=== PATIENT | female | born 1945 | race Caucasian/White ===

== ENCOUNTER 2016-09-27 11:41 | Day surgery (SDC) | payer MEDICARE, OTHER ==
[2016-09-27] VITALS (8 sets, daily range): BP systolic 103–191; BP diastolic 53–102; PULSE 58–79; RESP 12–18; TEMP 96.7–97.7; O2SAT 95–100; Ht 170.2 cm; Wt 89.2 kg
[~2016-09-27] VITALS: Ht 170.2 cm; Wt 89.2 kg
[~2016-09-27 11:41] MED LIST: ALBU2.5V2 AEROSOL; ALLO300T2 PO; AMLO5TAB2 PO; ASPI81TA2 PO; CYAN250010 PO; DOCU-168 PO; ERTAPENEM 1 G in NORMAL SALINE 100 ML IV ONE; FISH1CAP2 PO; LEVO100T12 PO; LEVO5TAB20 PO; LIDOCAINE 1% (10mg/ml) 2ml SDV INJ ONE; LOSA50TA2 PO; OMEP10SU2 PO; VIT1CAPS47 PO; [UNRECOGNIZED DRUG - CODE] PO
--- OUTSIDE RECORDS SUMMARY | 2016-09-27 11:45 | XMS REPORT | Referral Summary ---
Author Author [facility], Family Medicine Organization [facility] Address Unknown Phone Unavailable Care Team Providers Care Shock Absorption Floor Layer Name Role Phone Ailyn Stephenson Primary Care Physician [phone] Encounter VC Date(s): 07/13/16 - 07/13/16 [facility], [address] [place] [address]- Discharge Diagnosis: Asthma exacerbation Discharge Disposition: 01-Home or Self Care Attending Physician: Luc Stephenson MD Admitting Physician: Luc Stephenson MD Vital Signs Most recent to 1 oldest [Reference Range]: Peripheral Pulse 95 bpm Rate [60-100 bpm] (07/13/16 2:05 PM) Blood Pressure 134/78 mmHg [90-140/60-90 mmHg] (07/13/16 2:05 PM) SpO2 97 % (07/13/16 2:05 PM) Problem List Condition Effective Dates Status Health Status Informant Acquired Active hypothyroidism(Confi rmed) Depression(Confirmed Active ) Anxiety(Confirmed) Active Meningioma of 2010 Active brain(Confirmed) Meningioma of 2000 Active brain(Confirmed)1 Bronchitis(Confirmed Active ) Constipation(Confirm Active ed) COPD(Confirmed) Resolved Liver Active disease(Confirmed) Diverticulitis(Confi Active rmed) Fibrocystic breast Active disease(Confirmed) Fractured shoulder Resolved Left(Confirmed) GERD Active (gastroesophageal reflux disease)(Confirmed) Hyperlipidemia(Confi Active rmed) Hypertension(Confirm Active ed) Hyperthyroidism(Conf Active irmed) Lymphadenopathy(Conf Active irmed) Thyroid 1980 Active cancer(Confirmed) Pneumonia(Confirmed) Active Allergies, Adverse Reactions, Alerts Substance Reaction Severity Status Augmentin Active levofloxacin Active penicillins Diarrhea Active Vomiting dehyrdation [id number] Active statins muscle cramps Active 1generalized swelling. Medications albuterol 2.5 mg/3 mL (0.083%) inhalation solution 2.5 mg 3 mL, Inhalation, q6hr, as needed for wheezing, # 2 boxes, 2 Refill(s), Pharmacy: [facility] #[id number], 3 mL Inhalation q6hr,PRN:as needed for wheezing Start Date: 02/23/16 Status: Ordered Aspir 81 81 mg, Oral, Daily, 0 Refill(s) Start Date: 12/17/13 Status: Ordered Colace Oral, Daily, 0 Refill(s) Start Date: 11/15/14 Status: Ordered doxycycline hyclate 100 mg oral capsule 100 mg 1 caps, Oral, BID, # 20 caps, 0 Refill(s), Pharmacy: [facility] # [id number], 1 caps Oral BID Start Date: 07/13/16 Stop Date: 07/23/16 Status: Ordered DuoNeb 0.5 mg-2.5 mg/3 mL inhalation solution 3 mL, NEB, QID, # 60 Each, 2 Refill(s), Pharmacy: [facility] #[id number] Start Date: 07/13/16 Status: Ordered fexofenadine 180 mg oral tablet 180 mg 1 tabs, Oral, Daily, # 30 tabs, 0 Refill(s) Start Date: 06/30/16 Status: Ordered Fish Oil See Instructions, 1 capsule Oral daily., 0 Refill(s) Start Date: 04/11/15 Status: Ordered levothyroxine 100 mcg (0.1 mg) oral tablet See Instructions, TAKE ONE TABLET BY MOUTH DAILY, # 90 tabs, 1 Refill(s), Pharmacy: [facility], TAKE ONE TABLET BY MOUTH DAILY Start Date: 04/21/16 Status: Ordered lisinopril 10 mg oral tablet See Instructions, TAKE ONE TABLET BY MOUTH EVERY DAY, # 90 tabs, 1 Refill(s), Pharmacy: [facility], TAKE ONE TABLET BY MOUTH EVERY DAY Start Date: 05/20/16 Status: Ordered PreserVision AREDS 2 caps, Oral, Daily, 0 Refill(s) Start Date: 12/31/15 Status: Ordered PriLOSEC 10 mg oral delayed release capsule 1 caps, Oral, Daily, # 30 caps, 0 Refill(s) Start Date: 01/03/14 Status: Ordered promethazine-codeine 6.25 mg-10 mg/5 mL oral syrup 5 mL, Oral, q4hr, as needed for cough, not to exceed 30 mL/24 hours N. Dillons , # 240 mL, 0 Refill(s) Start Date: 06/30/16 Status: Ordered Systane 1 drops, Eye-Both, BID, 0 Refill(s) Start Date: 04/11/15 Status: Ordered Tussionex PennKinetic 10 mg-8 mg/5 mL oral suspension, extended release 5 mL, Oral, q12hr, as needed for cough, # 120 mL, 0 Refill(s) Start Date: 07/13/16 Stop Date: 07/22/16 Status: Ordered Vitamin B-12 0 Refill(s) Start Date: 11/15/14 Status: Ordered Results No data available for this section Immunizations Given and Recorded Vaccine Date Status Refusal Reason influenza virus vaccine, inactivated 03/17/15 Given pneumococcal 13-valent conjugate vaccine 03/17/15 Given Procedures Procedure Date Related Diagnosis Body Site Biopsy Bone Marrow1 06/25/15 Procedure with Anesthesia2 06/25/15 Cystopanendoscopy3 08/03/13 Esophagogastroduodenoscopy2011 Gamma Knife for megioma 2003 Craniotomy - Memingioma 2000 Hysterectomy 1998 Cholecystectomy 1991 Thyroid Surgery total 1980 Liver biopsy 1auto-populated from documented surgical case 2auto-populated from documented surgical case 3uretral calibration & dilatation, hydrodistention of the urinary bladder, SLT laser vaporization of the [id number] Social History Social History Type Response Smoking Status Former smoker Assessment and Plan No data available for this section
--- OUTSIDE RECORDS SUMMARY | 2016-09-27 11:45 | XMS REPORT | Referral Summary ---
Author Author [facility], Family [facility] Organization [facility] Address Unknown Phone Unavailable Care Team Providers Care Podiatric Technician Name Role Phone Ailyn Stephenson Primary Care Physician [phone] Encounter VC Date(s): 07/30/16 - 07/30/16 [facility], [address] [place] [address] Discharge Diagnosis: Chronic cough Discharge Disposition: 01-Home or Self Care Attending Physician: Luc Stephenson MD Admitting Physician: Luc Stephenson MD Vital Signs Most recent to 1 oldest [Reference Range]: Temperature Tympanic 36.9 degC [36.6-38.1 degC] (07/30/16 10:55 AM) Peripheral Pulse 76 bpm Rate [60-100 bpm] (07/30/16 10:55 AM) Respiratory Rate 18 br/min [14-20 br/min] (07/30/16 10:55 AM) Blood Pressure 136/78 mmHg [90-140/60-90 mmHg] (07/30/16 10:55 AM) SpO2 99 % (07/30/16 10:55 AM) Problem List Condition Effective Dates Status Health [...] wheezing, # 2 boxes, 2 Refill(s), Pharmacy: [facility] #[id number], 3 mL Inhalation q6hr,PRN:as needed for wheezing Start Date: 02/23/16 Status: Ordered amLODIPine 5 mg oral tablet 5 mg 1 tabs, Oral, Daily, # 7 tabs, 0 Refill(s), Pharmacy: [facility] # [id number], 1 tabs Oral Daily,x7 days Start Date: 07/19/16 Stop Date: 07/26/16 Status: Ordered Aspir 81 81 mg, Oral, Daily, 0 Refill(s) Start Date: 12/17/13 Status: Ordered Colace Oral, Daily, 0 Refill(s) Start Date: 11/15/14 Status: Ordered Cozaar 50 mg oral tablet 50 mg 1 tabs, Oral, Daily, # 30 tabs, 4 Refill(s), Pharmacy: [facility] # [id number], 1 tabs Oral Daily Start Date: 07/30/16 Status: Ordered DuoNeb 0.5 mg-2.5 mg/3 mL inhalation solution 3 mL, NEB, QID, # 60 Each, 2 Refill(s), Pharmacy: [facility] #[id number] Start Date: 07/13/16 Status: Ordered Fish Oil See Instructions, 1 capsule Oral daily., 0 Refill(s) Start Date: 04/11/15 Status: Ordered levothyroxine 100 mcg (0.1 mg) oral tablet See Instructions, TAKE ONE TABLET BY MOUTH DAILY, # 90 tabs, 1 Refill(s), Pharmacy: [facility], TAKE ONE TABLET BY MOUTH DAILY Start Date: 04/21/16 Status: Ordered lisinopril 10 mg oral tablet See Instructions, TAKE ONE TABLET BY MOUTH EVERY DAY, # 90 tabs, 1 Refill(s), Pharmacy: [facility], TAKE ONE TABLET BY MOUTH [...] cough, not to exceed 30 mL/24 hours Bobbi Rojas , # 240 mL, 0 Refill(s) Start Date: 06/30/16 Status: Ordered Systane 1 drops, Eye-Both, BID, 0 Refill(s) Start Date: 04/11/15 Status: Ordered Vitamin B-12 0 Refill(s) Start Date: 11/15/14 Status: Ordered Xyzal 5 mg oral tablet 5 mg 1 tabs, Oral, qPM, # 30 tabs, 0 Refill(s), Pharmacy: [facility] # [id number] Start Date: 07/19/16 Stop Date: 08/18/16 Status: Ordered Results No data available for this section Immunizations Given and Recorded Vaccine Date Status Refusal Reason influenza virus vaccine, inactivated 03/17/15 Given pneumococcal 13-valent conjugate vaccine 03/17/15 Given Procedures Procedure Date Related Diagnosis Body Site Biopsy Bone Marrow1 06/25/15 Procedure with Anesthesia2 06/25/15 Cystopanendoscopy3 08/03/13 Esophagogastroduodenoscopy4 2011 Gamma Knife for megioma 2003 Craniotomy - Memingioma 2000 Hysterectomy 1998 Cholecystectomy 1991 Thyroid Surgery total 1980 Liver biopsy 1auto-populated from documented surgical case 2auto-populated from documented surgical case 3uretral calibration & dilatation, hydrodistention of the urinary bladder, SLT laser vaporization of the [id number] Social History Social History Type Response Smoking Status Former smoker Assessment and Plan Extracted from: Title: Ambulatory Patient Education Author: Luc Stephenson MD Date: Allergy Cough, Adult A cough is a reflex that helps clear your throat and airways. It can help heal the body or may be a reaction to an irritated airway. A cough may only last 2 or 3 weeks (acute) or may last more than 8 weeks (chronic). CAUSES Acute cough: Viral or bacterial infections. Chronic cough: Infections. Allergies. Asthma. Post-nasal drip. Smoking. Heartburn or acid reflux. Some medicines. Chronic lung problems (COPD). Cancer. SYMPTOMS Cough. Fever. Chest pain. Increased breathing rate. High-pitched whistling sound when breathing (wheezing). Colored mucus that you cough up (sputum). TREATMENT A bacterial cough may be treated with antibiotic medicine. A viral cough must run its course and will not respond to antibiotics. Your caregiver may recommend other treatments if you have a chronic cough. HOME CARE INSTRUCTIONS Only take [id number] or prescription medicines for pain, discomfort , or fever as directed by your caregiver. Use cough suppressants only as directed by your caregiver. Use a cold steam vaporizer or humidifier in your bedroom or home to help loosen secretions. Sleep in a semi-upright position if your cough is worse at night. Rest as needed. Stop smoking if you smoke. SEEK IMMEDIATE MEDICAL CARE IF: You have pus in your sputum. Your cough starts to worsen. You cannot control your cough with suppressants and are losing sleep. You begin coughing up blood. You have difficulty breathing. You develop pain which is getting worse or is uncontrolled with medicine. You have a fever. MAKE SURE YOU: Understand these instructions. Will watch your condition. Will get help right away if you are not doing well or get worse. This information is not intended to replace advice given to you by your health care provider. Make sure you discuss any questions you have with your health care provider. Document Released: 11/19/2011 Document Revised: 08/14/2012 Document Reviewed: [employer] Interactive Patient Education 2016 [employer] No follow up information was provided. Extracted from: Title: Office Visit Note Author: Luc Stephenson MD Date: 07/30/16 Assessment/Plan 1.Chronic cough Stop the lisinopril and start Losartan 50mg daily Ordered: Office Visit Level 2 Est 85258 Follow up in 3 months or sooner if blood pressure is not well controlled.
--- OUTSIDE RECORDS SUMMARY | 2016-09-27 11:45 | XMS REPORT | Continuity of Care Document ---
Author Author [facility] Organization [facility] Address Unknown Phone Unavailable Care Team Providers Care Die Welder Name Role Phone NORMA DOWNING MD Primary Care Physician [phone] Insurance Providers Guarantor Lydia Martines Address [address] [place] [address] Email DENIED/NO TO PT PORT Payer Other A Insurance Policy Number [id number] Subscriber's Name Lydia Martines Relationship 18 Self Group Number [id number] Effective Date 10 Payer Medicare Policy Number [id number] Subscriber's Name Lydia Martines Relationship 18 Self Effective Date 06 Chief Complaint and Reason for Visit Chief Complaint Cough,Fever,Flu,URI Reason for Visit Bronchitis Problems Active Problems Medical Problem Onset Date Status Abdominal pain Unknown Acute Abdominal pain Unknown Acute Anxiety Unknown Chronic Ascites Unknown Chronic Bipolar 1 disorder Unknown Chronic CKD (chronic kidney disease), stage III Unknown Chronic COPD (chronic obstructive pulmonary disease) Unknown Chronic Chest heaviness Unknown Acute Chest heaviness Unknown Acute Cirrhosis of liver Unknown Chronic Dehydration Unknown Resolved Dehydration Unknown Acute Dehydration Unknown Resolved Diastolic CHF Unknown Chronic Diverticulitis Unknown Acute Diverticulitis Unknown Acute Dysphagia Unknown Chronic History of meningioma of the brain Unknown Chronic History of pneumonia Unknown Chronic History of thyroid cancer Unknown Chronic Hyperkalemia Unknown Acute Hypertension Unknown Chronic Hypothyroidism Unknown Chronic Hypovolemia Unknown Acute Ischemic bowel disease Unknown Acute Leukocytosis Unknown Acute Loose stools Unknown Acute Nausea and vomiting Unknown Resolved Nausea and vomiting Unknown Acute Overweight (BMI 25.0-29.9) Unknown Chronic Personal history of DVT (deep vein thrombosis) Unknown Chronic Renal insufficiency Unknown Resolved Syncope Unknown Resolved Syncope Unknown Acute Past Problems Medical Problem Onset Date Bronchitis Unknown Medications Current Home Medications Medication Dose Units Route Directions Days Qty Instructions Start Date Allopurinol 300 Mg Tablet 300 Mg Oral Daily 09/08/15 Aspirin 81 Mg Tab.chew 81 Mg Oral Daily 04/08/15 Cyanocobalamin (Vitamin B-12) (Vitamin B-12) Unknown Strength Tablet 1 Tab Oral Daily 09/08/15 Levothyroxine Sodium 100 Mcg Tablet 100 Mcg Oral Daily 12/18/14 Lisinopril 10 Mg Tablet 10 Mg Oral Daily 04/08/15 Magnesium Oxide ([place]) 500 Mg Tablet 500 Mg Oral Daily Belton-3 Fatty Acids/Fish Oil (Fish Oil 1,000 Mg Capsule) 1 Each Capsule 1,000 Mg Oral Daily 04/08/15 Omeprazole 20 Mg Tablet.dr 20 Mg Oral Daily 04/08/15 Vit C/E/Zn/Coppr/Lutein/Zeaxan (Preservision Areds 2 Softgel) 1 Each Capsule 1 Cap Oral Twice A Day 09/08/15 Past Home Medications Medication Directions Ordered Status Centrum , Daily 03/13/09 Discontinued Levothyroxine Sodium (Levoxyl) 125 Mcg Tablet, Daily 03/13/09 Discontinued Lisinopril 10 Mg Tablet, 1 Tab Oral Daily 02/04/11 Discontinued Mucinex Dm , 03/13/09 Discontinued Ondansetron Hcl 4 Mg Tablet, 4 Mg Oral Q6h/0300,0900,1500,2100 12/18/14 Discontinued Social History Social History Problem Response Recorded Date/Time Onset Date Status Chewing Tobacco Status No 08/03/2013 8:59am Not Applicable Not Applicable Hx Substance Use No 09/08/2015 5:32pm Not Applicable Not Applicable Hx Alcohol Use No 09/08/2015 5:32pm Not Applicable Not Applicable Has the pt used tobacco in the last 12 months No 12/18/2014 7:22pm Not Applicable Not Applicable Tobacco Usage none smoke 12/19/2014 11:53am Not Applicable Not Applicable Hospital Discharge Instructions No hospital discharge instructions. Plan of Care Discharge Date 05/17/16 4:50pm Disposition 01 DISCHARGED HOME, SELF-CARE Condition at Discharge Stable Prescriptions See Medication Section Referrals NORMA DOWNING MD Address: [address] [place] [address] [place] [phone] Additional Instructions/Education Go to [facility] at [facility] from here. Functional Status No functional status results. Allergies, Adverse Reactions, Alerts Allergen Type Severity Reaction Status Last Updated Penicillin Adverse Reaction Intermediate VOMITING, DIARRHEA Active Quinine Allergy Intermediate SWELLING Active 05/17/16 Levofloxacin Allergy Unknown Active 05/17/16 Immunizations Query Response on File Recorded Date/Time Hx Influenza Vaccination Y 03/1912/18/14 7:22pm Hx Pneumococcal Vaccination Y 03/201112/18/14 7:22pm Hx Tetanus, Diptheria, Pertussis N/A SKIN INTACT 12/18/14 1:50pm Hx Influenza Vaccination Y 03/1912/18/14 7:22pm Hx Tetanus, Diptheria, Pertussis N/A SKIN INTACT 12/18/14 1:50pm Influenza Vaccine Hx 201405/17/16 4:27pm Vital Signs Acute Vital Signs Vital Response Date/Time Temperature (Fahrenheit) 98.9 deg F (96.8 - 99.1) 05/17/2016 4:22pm Temperature (Calculated Celsius) 37.94072 degrees C (36.0 - 37.3) 05/17/2016 4:22pm Pulse Rate (adult) 92 bpm (60 - 100) 05/17/2016 4:22pm Respiratory Rate 30 breaths/min (10 - 20) 05/17/2016 4:22pm O2 Sat by Pulse Oximetry 97 % (90 - 100) 05/17/2016 4:22pm Blood Pressure 132/85 mm Hg 05/17/2016 4:22pm Height (Inches) 66.40 inches 05/17/2016 4:22pm Weight (Kilograms) 87.800 kg 05/17/2016 4:22pm Body Mass Index (BMI) 30.0 05/17/2016 4:22pm Results No known relevant diagnostic tests, laboratory data and/or discharge summary. Procedures No known history of procedures. Encounters Encounter Location Arrival/Admit Date Discharge/Depart Date Attending Provider Departed Emergency Room [facility] 05/17/16 4:19pm 05/17/16 4: 50pm TONE EAGLE APRN Recent Diagnosis
--- OUTSIDE RECORDS SUMMARY | 2016-09-27 11:46 | XMS REPORT | Continuity of Care Document ---
Author Author [facility] Organization [facility] Address Unknown Phone Unavailable Support Name Relationship Address Phone SHIVAMYLESE DO Caregiver [address] [place] [address] [address] [place] [address] RAMONA COTO DO Caregiver [address] [place] [address] NORMA STEPHENSON MD Caregiver [address] [place] [address] [place] [phone] CHRISTINA URENA MD Caregiver [address] [place] [address] [place] [address] TIFFANY SANDHU Next Of Kin [address] [place] [address] Insurance Providers Payer Name Policy Number Subscriber Name Relationship Medicare [id number] Lydia Martines 18 Self Other A Insurance [id number] Lydia Martines 18 Self Advance Directives Directive Response Recorded Date/Time Ordered Resuscitation Status Full Code 06/17/14 8:06pm Chief Complaint and Reason for Visit Chief Complaint DIVERTICULITIS WITH DEHYDRATION, SYNCOPE Reason for Visit Nausea and vomiting Diverticulitis Abdominal pain Syncope Leukocytosis Renal insufficiency Dehydration Dysphagia Anxiety Bipolar 1 disorder History of pneumonia Overweight (BMI 25.0-29.9) Hypertension Hypothyroidism History of thyroid cancer History of meningioma of the brain Diastolic CHF COPD (chronic obstructive pulmonary disease) Ascites Diverticulitis Abdominal pain Dehydration Personal history of DVT (deep vein thrombosis) CKD (chronic kidney disease), stage III Problems Medical Problems Problem Onset Date Status Chest heaviness Unknown Active Nausea and vomiting Unknown Resolved Chest heaviness Unknown Active Diverticulitis Unknown Active Abdominal pain Unknown Resolved Syncope Unknown Resolved Leukocytosis Unknown Active Renal insufficiency Unknown Resolved Dehydration Unknown Resolved Dysphagia Unknown Active Anxiety Unknown Active Bipolar 1 disorder Unknown Active History of pneumonia Unknown Active Overweight (BMI 25.0-29.9) Unknown Active Hypertension Unknown Active Hypothyroidism Unknown Active History of thyroid cancer Unknown Active History of meningioma of the brain Unknown Active Diastolic CHF Unknown Active COPD (chronic obstructive pulmonary disease) Unknown Active Ascites Unknown Resolved Diverticulitis Unknown Active Abdominal pain Unknown Active Dehydration Unknown Active Personal history of DVT (deep vein thrombosis) Unknown Active CKD (chronic kidney disease), stage III Unknown Active Medications Medication Dose Route Sig Days/Qty Instructions Order Date Discontinued Date Status Spironolactone 100 Mg PO DAILY 03/13/09 Active Aspirin 1 Tab DAILY 03/13/09 Active [Centrum] DAILY 03/13/09 12/27/11 Discontinued Levothyroxine Sodium DAILY 03/13/09 07/05/12 Discontinued [Mucinex Dm] 03/13/09 06/14/10 Discontinued Lisinopril 10 Mg PO DAILY 02/04/11 Active Levothyroxine Sodium 100 Mcg PO DAILY 07/18/13 Active Vit C/Vit E Acetate/Lutein/Min 1 Cap PO DAILY 07/18/13 Active Sucralfate 1 Gm PO FOUR TIMES DAILY 01/24/14 Active Omeprazole Magnesium 1 Cap PO DAILY 01/24/14 Active Cyanocobalamin (Vitamin B-12) 1 Tab PO DAILY 06/17/14 Active Docusate Sodium 1 Tab PO DAILY 06/17/14 Active Omeprazole 20 Mg PO BEFORE BREAKFAST Take 1 capsule, by mouth, one time a day (before 06/17/14 Active Propylene Glycol 1 Drop OP TWICE A DAY 06/17/14 Active Metronidazole 500 Mg PO TWICE A DAY 10 Qty Start medication on 06/19/14 06/18/14 Active Ondansetron 4 Mg PO Q6H/0300,0900,1500,2100 PRN NAUSEA &/OR VOMITING 15 Qty 06/18/14 Active Social History Social History Problem Response Recorded Date/Time Chewing Tobacco Status No 08/03/2013 8:59am Hx Substance Use No 06/17/2014 4:00pm Hx Alcohol Use No 06/17/2014 4:00pm Has the pt used tobacco in the last 12 months No 06/17/2014 10:34pm Tobacco Usage none 06/17/2014 8:40pm Query Response Start Date Stop Date Smoking Status Former smoker Hospital Discharge Instructions Instructions: Care Instructions: Reason for Hospitalization: Diverticulitis I was in the hospital because (patient own words): kept passing out and stomach pains Discharge Diet: Full liquids, advance slowly to a regular diet Discharge Activity: As tolerated Follow Up Appointments: Call Dr. Stephenson for a follow up appointment within 1-2 weeks. An appointment has been made for you with Dr. Bass (GI specialist in [place]) -- since your ascites resolved, please discuss this upcoming appointment with Dr. Stephenson. Patient Instructions: Limit whole pieces of fiber (such as seeds, corn, and nuts) because of concern that the undigested fragments could become lodged within a diverticulum Notify Physician If: you develop fever >101, develop new or severe abdominal pain, if you are unable to eat/drink adequately (such as persistent vomiting or diarrhea), or if you develop chest pain, difficulty breathing, signs of stroke, or mental status changes. Do not hesitate to dial 911 if necessary. Condition at time of discharge: Good have your Surgeon paged. Condition at time of discharge: [place] Plan of Care Discharge Date 06/18/14 8:10pm Disposition 01 DISCHARGED HOME, SELF-CARE Instructions/Education Provided DI for Dehydration -- Adult DI for Diverticulitis Prescriptions See Medications Section Functional Status Query Response Date Recorded Physical Hygiene Self June 17, 2014 4:00pm Disabilities None June 17, 2014 8:09pm Devices Used None June 17, 2014 8:09pm Dressing Self June 17, 2014 4:00pm Ambulation Self June 17, 2014 4:00pm Diet Self June 17, 2014 4:00pm Mental Status Alert June 17, 2014 9:59pm Disabilities None June 17, 2014 8:09pm Devices Used None June 17, 2014 8:09pm Physical Hygiene Self June 17, 2014 4:00pm Dressing Self June 17, 2014 4:00pm Ambulation Self June 17, 2014 4:00pm Diet Self June 17, 2014 4:00pm Allergies, Adverse Reactions, Alerts Allergen Type Severity Reaction Status Last Updated Penicillin Allergy Intermediate VOMITING, DIARRHEA Active 06/17/14 Quinine Allergy Intermediate SWELLING Active 06/17/14 Levofloxacin Allergy Intermediate Active 06/17/14 Immunizations Name Given Type Hx Influenza Vaccination Y 03/19 Historical Hx Pneumococcal Vaccination Y 2010 Historical Hx Tetanus, Diptheria, Pertussis N/A SKIN INTACT Historical Hx Influenza Vaccination Y 03/19 Historical Hx Tetanus, Diptheria, Pertussis N/A SKIN INTACT Historical Vital Signs Acute Vital Signs Vital Response Date/Time Temperature (Fahrenheit) 97.3 deg F (96.8 - 99.1) Temperature (Calculated Celsius) 36.76002 degrees C (36.0 - 37.3) Temperature Source Oral Pulse Rate (adult) 89 bpm (60 - 100) Respiratory Rate 18 breaths/min (10 - 20) O2 Sat by Pulse Oximetry 99 % (90 - 100) Oxygen Delivery Method Room Air Blood Pressure 115/77 mm Hg Blood Pressure Source Automatic Cuff Height 5 ft 7 in Weight 169 lb Body Mass Index 26.0 kg/m^2 Results Test Source Date Result Interp. Ref. Range Comments Activated Partial Thromboplast Time December 17, 2013 5:50pm 28.2 SEC N 24- 36 Alanine Aminotransferase (ALT/SGPT) June 18, 2014 4:29am 21 U/L N 9- 52 Albumin June 18, 2014 4:29am 2.8 G/DL L 3.5-5.0 Albumin/Globulin Ratio June 18, 2014 4:29am 1.4 RATIO N 1.1-2.2 Alkaline Phosphatase June 18, 2014 4:29am 70 U/L DN 38-126 Amylase Level June 18, 2014 9:57am 58 U/L N 30-110 COMMENT on blood in lab if possible Anion Gap June 18, 2014 4:29am 5 MEQ/L N 5-15 Aspartate Amino Transf (AST/SGOT) June 18, 2014 4:29am 12 U/L L 14- 36 B-Type Natriuretic Peptide September 13, 2010 8:23pm < 15 PG/ML L 15-100 BUN/Creatinine Ratio June 18, 2014 4:29am 14 RATIO N 6-26 Band Neutrophils # June 18, 2014 4:29am 0.5 T/MM3 - Band Neutrophils % June 18, 2014 4:29am 4.0 % N 0-6 Basophils # (Auto) December 17, 2013 5:50pm 0.0 T/MM3 N 0-0.2 Basophils # (Manual) March 16, 2009 4:30am 0.0 T/MM3 N 0-0.2 Basophils % (Manual) March 16, 2009 4:30am 0.0 % N 0-2 Basophils (%) (Auto) December 17, 2013 5:50pm 0.2 % N 0-2 Blood Urea Nitrogen June 18, 2014 4:29am 15.0 MG/DL N 7-17 Calcium Level June 18, 2014 4:29am 8.0 MG/DL DL 8.4-10.2 Calculated Osmolality June 18, 2014 4:29am 265 MOSM/KG N 261-280 Carbon Dioxide Level June 18, 2014 4:29am 25 MEQ/L N 22-30 Chemistry Specimen Hemolysis June 18, 2014 4:29am < 15 0-25 0-25: No Hemolysis.26-70: Slight Hemolysis - can falsely elevate K and Urine Protein. 71-285: Moderate Hemolysis - can falsely elevate K, Troponin I, CA 19-9, PTH, CSF GLucose, and Urine Protein, and can falsely decrease Phenytoin. 286-999: Gross Hemolysis - can falsely elevate K, Troponin I, CA 19-9, PTH, CSF Glucose, and Urine Protine, and can falsely decrease Phenytoin. Recommend specimen recollection. Chloride Level June 18, 2014 4:29am 107 MEQ/L N 98-107 Cholesterol Level July 23, 2010 1:10pm 217 MG/DL H 132-199 Cholesterol/HDL Ratio July 23, 2010 1:10pm 5.0 RATIO H 0-4.0 Conjugated Bilirubin September 13, 2010 8:23pm 0.00 MG/DL N 0.00-0.30 Creatine Kinase MB July 24, 2010 5:45am 0.0 NG/ML N 0-3.4 Creatinine June 18, 2014 4:29am 1.1 MG/DL DN 0.7-1.2 D-Dimer June 17, 2014 4:30pm 8205 NG/ML H 0-230 <230 NG/ML D-DU= PRESUMPTIVE NEGATIVE FOR PE OR DVT>230 NG/ML D-DU=ADDITIONAL EVAL FOR PE OR DVT RECOMMENDED EKG September 24, 2007 9:58pm Complete - Eosinophils # (Auto) December 17, 2013 5:50pm 0.1 T/MM3 N 0-0.5 Eosinophils # (Manual) June 17, 2014 4:30pm 0.2 T/MM3 N 0-0.5 Eosinophils % (Manual) June 17, 2014 4:30pm 1.0 % N 0-4 Eosinophils (%) (Auto) December 17, 2013 5:50pm 0.7 % N 0-4 Globulin June 18, 2014 4:29am 2.0 G/DL L 2.4-3.6 Glomerular Filtration Rate Calc June 18, 2014 4:29am 49 - Glucose Level June 18, 2014 4:29am 95 MG/DL N 65-110 HDL Cholesterol Direct July 23, 2010 1:10pm 43 MG/DL N 40-60 Hematocrit June 18, 2014 4:29am 33.9 % DL 36-46 Hemoglobin June 18, 2014 4:29am 10.9 GM/DL DL 12-16 Icterus Index June 18, 2014 4:29am < 2 0-7 Immature Granulocyte # (Auto) December 17, 2013 5:50pm 0.02 T/MM3 N 0.00- 0.03 Immature Granulocyte % (Auto) December 17, 2013 5:50pm 0.2 % N 0.0-0.5 Influenza Type A Antigen March 13, 2009 11:45am Negative - Influenza Type B Antigen March 13, 2009 11:45am Negative - LDL Cholesterol, Calculated July 23, 2010 1:10pm 150.2 N 66-159 Lipase June 18, 2014 9:57am 36 U/L N 23-300 COMMENT on blood in lab if possible Lymphocytes # (Auto) December 17, 2013 5:50pm 5.2 T/MM3 H 1-4.8 Lymphocytes # (Manual) June 18, 2014 4:29am 8.1 T/MM3 H 1-4.8 Lymphocytes % (Manual) June 18, 2014 4:29am 63.0 % H 23-45 Lymphocytes (%) (Auto) December 17, 2013 5:50pm 51.3 % H 23-45 Magnesium Level July 23, 2010 1:10pm 2.3 MG/DL N 1.6-2.3 Mean Corpuscular Hemoglobin June 18, 2014 4:29am 27.1 UUG N 26-34 Mean Corpuscular Hemoglobin Concent June 18, 2014 4:29am 32.2 GM/DL N 31-37 Mean Corpuscular Volume June 18, 2014 4:29am 84.3 UM3 N 80-100 Mean Platelet Volume June 18, 2014 4:29am 10.0 UM3 N 9.4-12.4 Metamyelocytes # March 16, 2009 4:30am 0.2 T/MM3 - Metamyelocytes % March 16, 2009 4:30am 1.0 % H 0-0 Monocytes # (Auto) December 17, 2013 5:50pm 0.6 T/MM3 N 0-0.8 Monocytes # (Manual) June 18, 2014 4:29am 0.6 T/MM3 N 0-0.8 Monocytes % (Manual) June 18, 2014 4:29am 5.0 % N 0-9.0 Monocytes (%) (Auto) December 17, 2013 5:50pm 5.4 % N 0-9.0 Myelocytes # March 16, 2009 4:30am 0.2 T/MM3 - Myelocytes % March 16, 2009 4:30am 1.0 % H 0-0 PG-Gkp-N-Type Natriuretic Peptide June 17, 2014 9:12pm 192 PG/ML H 0- 175 Rule in cut points: <50 years old=450; 50-75 years old=900; >75 years old=1800; When utilizing ProBNP rule-in cut points, adjustment for impaired renal function is typically not required. Neutrophils # (Auto) December 17, 2013 5:50pm 4.3 T/MM3 N 1.8-7.7 Neutrophils # (Manual) June 18, 2014 4:29am 3.6 T/MM3 N 1.8-7.7 Neutrophils % (Manual) June 18, 2014 4:29am 28.0 % L 33-66 Neutrophils (%) (Auto) December 17, 2013 5:50pm 42.2 % N 33-66 Platelet Count June 18, 2014 4:29am 169 T/MM3 N 130-400 Potassium Level June 18, 2014 4:29am 3.8 MEQ/L DN 3.6-5 Prealbumin June 17, 2014 9:12pm 22.4 MG/DL N 17.6-36.0 COMMENT ON BOOD IN LABCOMMENT ON BLOOD IN LAB COMMENT may use blood in lab COMMENT may use blood in lab Procalcitonin June 17, 2014 9:30pm < 0.05 NG/ML - PCT </=0.5 ng/ mL - sepsis not likely;PCT >0.5 and </=2 ng/mL - sepsis possible; PCT >2 ng/mL - sepsis likely; PCT >/=10 ng/mL - systemic inflammatory response - sepsis or septic shock highly indicated. Prothromb Time International Ratio June 18, 2014 9:57am 1.28 H 0.81- 1.09 THERAPUTIC RANGE=2.00-3.00 FOR ANTI-THROMBOSIS THERAPUTIC RANGE=2.50- 3.50 FOR IMPLANTED VALVE RDW Standard Deviation June 18, 2014 4:29am 43.2 FL N 36.9-50.2 Reactive Lymphocytes # July 05, 2012 4:30pm 1.6 T/MM3 H 0-0 Reactive Lymphocytes % July 05, 2012 4:30pm 10.0 % H 0-0 Red Blood Count June 18, 2014 4:29am 4.02 M/MM3 N 4.00-5.20 Smudge Cells August 03, 2013 9:02am 1+ - COMMENT SCU WILL CALL Sodium Level June 18, 2014 4:29am 137 MEQ/L N 134-144 Thyroid Stimulating Hormone (TSH) June 17, 2014 9:12pm 3.38 MIU/L N 0.47-4.68 COMMENT ON BOOD IN LABCOMMENT ON BLOOD IN LAB COMMENT may use blood in lab COMMENT may use blood in lab Thyroxine (T4) July 23, 2010 1:10pm 12.9 UG/DL H 5.5-11 Total Bilirubin June 18, 2014 4:29am 0.30 MG/DL N 0.20-1.30 Total Creatine Kinase June 15, 2010 5:40am 23 U/L L 30-135 Total Protein June 18, 2014 4:29am 4.8 G/DL L 6.3-8.2 Triglycerides Level July 23, 2010 1:10pm 119 MG/DL N 35-135 Troponin I June 17, 2014 4:30pm < 0.012 ng/ml 0-0.12 Turbidity June 18, 2014 4:29am < 20 0-20 Unconjugated Bilirubin September 13, 2010 8:23pm 0.35 MG/DL N 0.00-1.10 Urinalysis Comment June 17, 2014 7:07pm Microscopic not ind. - Has specimen been collected/obtained? Y Urine Bacteria September 13, 2010 9:40pm Trace H - Has specimen been collected/obtained? Y Urine Bilirubin June 17, 2014 7:07pm Negative - Has specimen been collected/obtained? Y Urine Blood June 17, 2014 7:07pm Negative - Has specimen been collected/obtained? Y Urine Collection Type June 17, 2014 7:07pm Voided-not cc-midstr - Has specimen been collected/obtained? Y Urine Color June 17, 2014 7:07pm Yellow - Has specimen been collected/obtained? Y Urine Culture Indicated September 13, 2010 9:40pm Cult not set up - Has specimen been collected/obtained? Y Urine Glucose (UA) June 17, 2014 7:07pm Negative - Has specimen been collected/obtained? Y Urine Ketones June 17, 2014 7:07pm Negative - Has specimen been collected/obtained? Y Urine Leukocyte Esterase June 17, 2014 7:07pm Negative - Has specimen been collected/obtained? Y Urine Nitrite June 17, 2014 7:07pm Negative - Has specimen been collected/obtained? Y Urine Protein June 17, 2014 7:07pm Negative - Has specimen been collected/obtained? Y Urine RBC September 13, 2010 9:40pm None seen /HPF - Has specimen been collected/obtained? Y Urine Specific [place] June 17, 2014 7:07pm 1.020 - Has specimen been collected/obtained? Y Urine Squamous Epithelial Cells June 14, 2010 1:30pm Many - Has specimen been collected/obtained? Y Urine Turbidity June 17, 2014 7:07pm Clear - Has specimen been collected/obtained? Y Urine Urobilinogen June 17, 2014 7:07pm 0.2 EU/DL - Has specimen been collected/obtained? Y Urine WBC September 13, 2010 9:40pm 5-10 /HPF H - Has specimen been collected/obtained? Y Urine pH June 17, 2014 7:07pm 5.5 - Has specimen been collected/ obtained? Y VLDL Cholesterol July 23, 2010 1:10pm 23.8 MG/DL N 0-28 Vitamin B12 Level June 17, 2014 9:12pm 396 PG/ML N 239-931 COMMENT ON BOOD IN LABCOMMENT ON BLOOD IN LAB COMMENT may use blood in lab COMMENT may use blood in lab White Blood Count June 18, 2014 4:29am 12.8 T/MM3 H 4.5-11.0 Blood Culture Blood July 05, 2012 4:30pm NO GROWTH AFTER 5 DAYS Gram Stain Sputum-Expectorated Sputum July 05, 2012 7:50pm Helicobacter pylori Rapid Urease Gastric Biopsy January 25, 2014 7:42am Urine Culture Urine, Straight Cath June 14, 2010 1:58pm Gram Positive Sam Name: LYDIA MARTINES Unit #: [id number] : 1945 Sex: F Loc / Sv: [facility] DOS: 06/17/14 Signed Report #: [id number] DIAGNOSTIC IMAGING REPORT TYPE OF EXAM: US LIVER (HEPATIC) Dictated By: KOLBY PRITCHETT MD INDICATION: ITS.REASON: new ascites US LIVER (HEPATIC): Comparison: CT abdomen and pelvis dated June 17, 2014 Findings: Calcified cystic left hepatic mass is again noted as seen on multiple prior CTs. Small 1 cm echogenic focus in the right lobe corresponding to the benign fatty lesion seen by CT. Hepatic parenchyma is otherwise homogeneous. The gallbladder is surgically absent. Both the intra and extrahepatic biliary system are of normal caliber with the common duct measuring 3 mm in dimension. Visualized portions of the head and body of the pancreas are unremarkable. The right kidney is present without collecting system dilatation. The right kidney measures 9.2 cm in length. Small volume ascites. Impression: Small volume ascites. No acute abnormality seen. . Procedures Procedure Status Date Provider(s) Paracentesis with ultrasound guidance completed 06/18/14 LETITIA MEYER MD Encounters Encounter Location Date/Time Admitted Inpatient [facility] 06/17/14 8:02pm Recent Diagnosis Nausea and vomiting Diverticulitis Abdominal pain Syncope Leukocytosis Renal insufficiency Dehydration Dysphagia Anxiety Bipolar 1 disorder History of pneumonia Overweight (BMI 25.0-29.9) Hypertension Hypothyroidism History of thyroid cancer History of meningioma of the brain Diastolic CHF COPD (chronic obstructive pulmonary disease) Ascites Diverticulitis Abdominal pain Dehydration Personal history of DVT (deep vein thrombosis) CKD (chronic kidney disease), stage III
--- OUTSIDE RECORDS SUMMARY | 2016-09-27 11:46 | XMS REPORT | Referral Summary ---
Author Author [facility] Organization [facility] Address Unknown Phone Unavailable Care Team Providers Care Cabinet And Trim Installer Name Role Phone Ailyn Stephenson Primary Care Physician [phone] Encounter VC Date(s): 03/05/16 - 03/05/16 [facility] [address] [place] [address]- Discharge Diagnosis: Cough Discharge Diagnosis: COPD with acute exacerbation Discharge Disposition: 01-Home or Self Care Attending Physician: Lilia Stokes PA-C Admitting Physician: Lilia Stokes PA-C Vital Signs Most recent to 1 oldest [Reference Range]: Peripheral Pulse 84 bpm Rate [60-100 bpm] (03/05/16 1:00 PM) Respiratory Rate 18 br/min [14-20 br/min] (03/05/16 1:00 PM) Blood Pressure 115/82 mmHg [90-140/60-90 mmHg] (03/05/16 1:00 PM) Problem List Condition Effective Dates Status [...] wheezing, # 2 boxes, 2 Refill(s), Pharmacy: [facility] #[id number], 3 mL Inhalation q6hr,PRN:as needed for wheezing Start Date: 02/23/16 Status: Ordered Aspir 81 81 mg, Oral, Daily, 0 Refill(s) Start Date: 12/17/13 Status: Ordered Breo Ellipta 100 mcg-25 mcg/inh inhalation powder 1 puffs, Inhalation, Daily, # 14 Each, 0 Refill(s), samples given to patient (Rx ) Start Date: 03/05/16 Status: Ordered Colace Oral, Daily, 0 Refill(s) Start Date: 11/15/14 Status: Ordered Fish Oil See Instructions, 1 capsule Oral daily., 0 Refill(s) Start Date: 04/11/15 Status: Ordered levothyroxine 100 mcg (0.1 mg) oral tablet See Instructions, TAKE ONE TABLET BY MOUTH DAILY, # 60 tabs, eRx: [facility], TAKE ONE TABLET BY MOUTH DAILY Start Date: 02/18/16 Status: Ordered lisinopril 10 mg oral tablet See Instructions, TAKE ONE TABLET BY MOUTH EVERY DAY, # 90 tabs, eRx: [facility], TAKE ONE TABLET BY MOUTH EVERY DAY Start Date: 02/18/16 Status: Ordered PreserVision AREDS 2 caps, Oral, Daily, 0 Refill(s) Start Date: 12/31/15 Status: Ordered PriLOSEC 10 mg oral delayed release capsule 1 caps, Oral, Daily, # 30 caps, 0 Refill(s) Start Date: 01/03/14 Status: Ordered promethazine-codeine 6.25 mg-10 mg/5 mL oral syrup 5 mL, Oral, q4hr, as needed for cough, # 120 mL, 0 Refill(s) Start Date: 03/03/16 Status: Ordered Systane 1 drops, Eye-Both, BID, 0 Refill(s) Start Date: 04/11/15 Status: Ordered Vitamin B-12 0 Refill(s) Start Date: 11/15/14 Status: Ordered Results No data available for this section Immunizations Vaccine Date Refusal Reason influenza virus vaccine, inactivated 03/17/15 pneumococcal 13-valent conjugate vaccine 03/17/15 Procedures Procedure Date Related Diagnosis Body Site Biopsy Bone Marrow1 06/25/15 Procedure with Anesthesia2 06/25/15 Cystopanendoscopy3 08/03/13 Esophagogastroduodenoscopy4 2011 Gamma Knife for megioma 2003 Craniotomy - Memingioma 2000 Hysterectomy 1998 Cholecystectomy 1991 Thyroid Surgery total 1980 Liver biopsy 1auto-populated from documented surgical case 2auto-populated from documented surgical case 3uretral calibration & dilatation, hydrodistention of the urinary bladder, SLT laser vaporization of the [id number] Social History Social History Type Response Smoking Status Former smoker Assessment and Plan Extracted from: Title: Office Visit Note- F/U Author: Lilia Stokes PA-C Date: 03/05 cough, COPD exac Assessment/Plan COPD with acute exacerbation Her CT scan showed COPD and bronchitis. Will have her continue with Albuterol tx's, and I also started her on Breo daily. She took her first dose in clinic and did well with it. Advised to make sure she rinses the mouth out after each dose. She was also given Solu-Medrol 80mg IM in clinic today as well. She is encouraged to rest over the weekend. Push fluids. RTC or ED ifworsening. Ordered: Office Visit Level 4 Est 71598 Cough Just got refill of Promethazine/codeine, which has helped. Ordered: Office Visit Level 4 Est 36166
--- OUTSIDE RECORDS SUMMARY | 2016-09-27 11:46 | XMS REPORT | Continuity of Care Document ---
Author Author [facility] Organization [facility] Address Unknown Phone Unavailable Allergies Active Description Code Type Severity Reaction Onset Reported/Identified Relationship to Patient Clinical Status Yes levofloxacin levofloxacin Drug Allergy Unknown NAUSEA 11/03/2010 Yes Penicillins Penicillins Drug Allergy Moderate VOMITING/ DIARRHEA/DEHYDRATION 07/26/2016 Yes quinine quinine Drug Allergy Moderate NAUSEA/VOMITING/ DIARRHEA 07/26/2016 Yes Lwpxchg-Yez-Mso Reductase Inhibitor Kifcnmg-Ipd-Dup Reductase Inhibitor Drug Allergy Moderate MUSCLE CRAMPS 07/26/2016 Yes amoxicillin amoxicillin Drug Allergy Mild DIARRHEA/NAUSEA/ DEHYDRATION 07/26/2016 Yes clavulanic acid clavulanic acid Drug Allergy Mild DIARRHEA/ NAUSEA/DEHYDRATION 07/26/2016 Medications Problems Procedures Results Test Result Range GRAM STAIN - 07/26/16 07:50 Microbiology AFB SMEAR - 07/26/16 07:50 Microbiology FUNGUS SMEAR - 07/26/16 07:50 Microbiology FLUID CYTOLOGY - 07/26/16 07:50 FLUID CYTOLOGY SPECIMEN RECEIVED Encounters ACCT No. Visit Date/Time Discharge Status Pt. Type Provider Facility Loc./Unit Complaint [id number] 08/17/2013 14:42:00 08/17/2013 23 :59:59 CLS Outpatient [id number] 07/06/2013 14:29:00 07/06/2013 23 :59:59 CLS Outpatient
--- OUTSIDE RECORDS SUMMARY | 2016-09-27 11:47 | XMS REPORT | Referral Summary ---
Author Author [facility], Family Medicine Organization [facility] Address Unknown Phone Unavailable Care Team Providers Care Shade Cutter Name Role Phone Ailyn Stephenson Primary Care Physician [phone] Encounter VC Date(s): 06/30/16 - 06/30/16 [facility], [address] [place] [address]- Discharge Diagnosis: Acquired hypothyroidism Discharge Diagnosis: Adjustment disorder with depressed mood Discharge Diagnosis: Hypertension Discharge Disposition: 01-Home or Self Care Attending Physician: Luc Stephenson MD Admitting Physician: Luc Stephenson MD Vital Signs Most recent to 1 oldest [Reference Range]: Peripheral Pulse 70 bpm Rate [60-100 bpm] (06/30/16 4:05 PM) Blood Pressure 146/74 mmHg [90-140/60-90 mmHg] *HI* (06/30/16 4:05 PM) SpO2 98 % (06/30/16 4:05 PM) Problem List Condition Effective Dates Status [...] wheezing, # 2 boxes, 2 Refill(s), Pharmacy: [facility] #[id number], 3 mL Inhalation q6hr,PRN:as needed for wheezing Start Date: 02/23/16 Status: Ordered Aspir 81 81 mg, Oral, Daily, 0 Refill(s) Start Date: 12/17/13 Status: Ordered Colace Oral, Daily, 0 Refill(s) Start Date: 11/15/14 Status: Ordered DuoNeb 0.5 mg-2.5 mg/3 mL inhalation solution 3 mL, NEB, QID, # 60 Each, 0 Refill(s), Pharmacy: [facility] #[id number] Start Date: 06/08/16 Status: Ordered fexofenadine 180 mg oral tablet 180 mg 1 tabs, Oral, Daily, # 30 tabs, 0 Refill(s) Start Date: 06/30/16 Status: Ordered Fish Oil See Instructions, 1 capsule Oral daily., 0 Refill(s) Start Date: 04/11/15 Status: Ordered levothyroxine 100 mcg (0.1 mg) oral tablet See Instructions, TAKE ONE TABLET BY MOUTH DAILY, # 90 tabs, 1 Refill(s), Pharmacy: [facility], TAKE ONE TABLET BY MOUTH DAILY Start Date: 04/21/16 Status: Ordered lisinopril 10 mg oral tablet See Instructions, TAKE ONE TABLET BY MOUTH EVERY DAY, # 90 tabs, 1 Refill(s), Pharmacy: [facility], TAKE ONE TABLET BY MOUTH EVERY DAY [...] urinary bladder, SLT laser vaporization of the [id number] Social History Social History Type Response Smoking Status Former smoker Assessment and Plan Extracted from: Title: Ambulatory Patient Education Author: Luc Stephenson MD Date: Preventive Medicine Managing Your High Blood Pressure Blood pressure is a measurement of how forceful your blood is pressing against the avila of the arteries. Arteries are muscular tubes within the circulatory system. Blood pressure does not stay the same. Blood pressure rises when you are active, excited, or nervous; and it lowers during sleep and relaxation. If the numbers measuring your blood pressure stay above normal most of the time, you are at risk for health problems. High blood pressure (hypertension) is a long-term (chronic) condition in which blood pressure is elevated. A blood pressure reading is recorded as two numbers, such as 120 over 80 (or 120 /80). The first, higher number is called the systolic pressure. It is a measure of the pressure in your arteries as the heart beats. The second, lower number is called the diastolic pressure. It is a measure of the pressure in your arteries as the heart relaxes between beats. Keeping your blood pressure in a normal range is important to your overall health and prevention of health problems, such as heart disease and stroke. When your blood pressure is uncontrolled, your heart has to work harder than normal. High blood pressure is a very common condition in adults because blood pressure tends to rise with age. Men and women are equally likely to have hypertension but at different times in life. Before age 45, men are more likely to have hypertension. After 65 years of age, women are more likely to have it. Hypertension is especially common in Americans. This condition often has no signs or symptoms. The cause of the condition is usually not known. Your caregiver can help you come up with a plan to keep your blood pressure in a normal, healthy range. BLOOD PRESSURE STAGES Blood pressure is classified into four stages: normal, prehypertension, stage 1 , and stage 2. Your blood pressure reading will be used to determine what type of treatment, if any, is necessary. Appropriate treatment options are tied to these four stages: Normal Systolic pressure (mm Hg): below 120. Diastolic pressure (mm Hg): below 80. Prehypertension Systolic pressure (mm Hg): 120 to 139. Diastolic pressure (mm Hg): 80 to 89. Stage1 Systolic pressure (mm Hg): 140 to 159. Diastolic pressure (mm Hg): 90 to 99. Stage2 Systolic pressure (mm Hg): 160 or above. Diastolic pressure (mm Hg): 100 or above. RISKS RELATED TO HIGH BLOOD PRESSURE Managing your blood pressure is an important responsibility. Uncontrolled high blood pressure can lead to: A heart attack. A stroke. A weakened blood vessel (aneurysm). Heart failure. Kidney damage. Eye damage. Metabolic syndrome. Memory and concentration problems. HOW TO MANAGE YOUR BLOOD PRESSURE Blood pressure can be managed effectively with lifestyle changes and medicines ( if needed). Your caregiver will help you come up with a plan to bring your blood pressure within a normal range. Your plan should include the following: Education Read all information provided by your caregivers about how to control blood pressure. Educate yourself on the latest guidelines and treatment recommendations. New research is always being done to further define the risks and treatments for high blood pressure. Lifestylechanges Control your weight. Avoid smoking. Stay physically active. Reduce the amount of salt in your diet. Reduce stress. Control any chronic conditions, such as high cholesterol or diabetes. Reduce your alcohol intake. Medicines Several medicines (antihypertensive medicines) are available, if needed, to bring blood pressure within a normal range. Communication Review all the medicines you take with your caregiver because there may be side effects or interactions. Talk with your caregiver about your diet, exercise habits, and other lifestyle factors that may be contributing to high blood pressure. See your caregiver regularly. Your caregiver can help you create and adjust your plan for managing high blood pressure. RECOMMENDATIONS FOR TREATMENT AND FOLLOW-UP The following recommendations are based on current guidelines for managing high blood pressure in non adults. Use these recommendations to identify the proper follow-up period or treatment option based on your blood pressure reading. You can discuss these options with your caregiver. Systolic pressure of 120 to 139 or diastolic pressure of 80 to 89: Follow up with your caregiver as directed. Systolic pressure of 140 to 160 or diastolic pressure of 90 to 100: Follow up with your caregiver within 2 months. Systolic pressure above 160 or diastolic pressure above 100: Follow up with your caregiver within 1 month. Systolic pressure above 180 or diastolic pressure above 110: Consider antihypertensive therapy; follow up with your caregiver within 1 week. Systolic pressure above 200 or diastolic pressure above 120: Begin antihypertensive therapy; follow up with your caregiver within 1 week. This information is not intended to replace advice given to you by your health care provider. Make sure you discuss any questions you have with your health care provider. Document Released: 02/14/2013 Document Reviewed: 02/14/2013 [employer] Interactive Patient Education 2016 [employer]. Heart Disease Prevention Heart disease is a leading cause of . There are many things you can do to help prevent heart disease. BE PHYSICALLY ACTIVE Physical activity is good for your heart. It helps control your blood pressure, cholesterol levels, and weight. Try to be physically active every day. Ask your health care provider what activities are best for you. BE A HEALTHY WEIGHT Extra weight can strain your heart and affect your blood pressure and cholesterol levels. Lose weight with diet and exercise if recommended by your health care provider. EAT HEART-HEALTHY FOODS Follow a healthy eating plan as recommended by your health care provider or dietitian. Heart-healthy foods include: High-fiber foods. These include oat bran, oatmeal, and whole-grain breads and cereals. Fruits and vegetables. Avoid: Alcohol. Fried foods. Foods high in saturated fat. These include meats, butter, whole dairy products, shortening, and coconut or palm oil. Salty foods. These include canned food, luncheon meat, salty snacks, and fast food. KEEP YOUR CHOLESTEROL LEVELS UNDER CONTROL Cholesterol is a substance that is used for many important functions. When your cholesterol levels are high, cholesterol can stick to the insides of your blood vessels, making them narrow or clog. This can lead to chest pain (angina) and a heart attack. Keep your cholesterol levels under control as recommended by your health care provider. Have your cholesterol checked at least once a year. Target cholesterol levels (in mg/dL) for most people are: Total cholesterol below 200. LDL cholesterol below 100. HDL cholesterol above 40 in men and above 50 in women. Triglycerides below 150. KEEP YOUR BLOOD PRESSURE UNDER CONTROL Having high blood pressure (hypertension) puts you at risk for stroke and other forms of heart disease. Keep your blood pressure under control as recommended by your health care provider. Ask your health care provider if you need treatment to lower your blood pressure. If you are 1839 years of age, have your blood pressure checked every 35 years. If you are 40 years of age or older, have your blood pressure checked every year. DO NOT USE TOBACCO PRODUCTS Tobacco smoke can damage your heart and blood vessels. Do not use any tobacco products including cigarettes, chewing tobacco, or electronic cigarettes. If you need help quitting, ask your health care provider. TAKE MEDICINES DIRECTED Take medicines only as directed by your health care provider. Ask your health care provider whether you should take an aspirin every day. Taking aspirin can help reduce your risk of heart disease and stroke. FOR MORE INFORMATION To find out more about heart disease, visit the [place] [employer]'s website at www.americanheart.org This information is not intended to replace advice given to you by your health care provider. Make sure you discuss any questions you have with your health care provider. Document Released: 01/04/2005 Document Revised: 06/13/2015 Document Reviewed: [employer] Interactive Patient Education 2016 [employer] No follow up information was provided. Extracted from: Title: Office Visit Note Author: Luc Stephenson MD Date: 06/30/16 Assessment/Plan 1.Acquired hypothyroidism Continue with the current medications and follow up with lab. Ordered: Office Visit Level 4 Est 05850 2.Adjustment disorder with depressed mood No change in treatment. Ordered: Office Visit Level 4 Est 35538 3.Hypertension Continue with the current medication with refills. Ordered: Office Visit Level 4 Est 89682 Bronchitis, chronic with acute exacerbation Will repeat the chest x-ray and refill the cough medication. Ordered: Office Visit Level 4 Est 20999 XR Chest 2 Views Follow up in 3 months.
--- OUTSIDE RECORDS SUMMARY | 2016-09-27 11:47 | XMS REPORT | Referral Summary ---
Author Author [facility], [facility] Organization [facility] Address Unknown Phone Unavailable Care Team Providers Care Mink Rancher Name Role Phone Ailyn Stephenson Primary Care Physician [phone] Encounter VC Date(s): 06/08/16 - 06/08/16 [facility] [address] [place] [address]- Discharge Diagnosis: Cough Discharge Diagnosis: COPD (chronic obstructive pulmonary disease) Discharge Disposition: 01-Home or Self Care Attending Physician: Lilia Stokes PA-C Admitting Physician: Lilia Stokes PA-C Vital Signs Most recent to 1 oldest [Reference Range]: Temperature Tympanic 37.2 degC [36.6-38.1 degC] (06/08/16 4:16 PM) Peripheral Pulse 91 bpm Rate [60-100 bpm] (06/08/16 4:16 PM) Blood Pressure 134/66 mmHg [90-140/60-90 mmHg] (06/08/16 4:16 PM) SpO2 99 % (06/08/16 4:16 PM) Problem List Condition Effective Dates Status [...] wheezing, # 2 boxes, 2 Refill(s), Pharmacy: [facility] #[id number], 3 mL Inhalation q6hr,PRN:as needed for wheezing Start Date: 02/23/16 Status: Ordered Aspir 81 81 mg, Oral, Daily, 0 Refill(s) Start Date: 12/17/13 Status: Ordered Colace Oral, Daily, 0 Refill(s) Start Date: 11/15/14 Status: Ordered DuoNeb 0.5 mg-2.5 mg/3 mL inhalation solution 3 mL, NEB, QID, # 60 Each, 0 Refill(s), Pharmacy: [facility] #[id number] Start Date: 06/08/16 Status: Ordered Fish Oil See Instructions, 1 capsule Oral daily., 0 Refill(s) Start Date: 04/11/15 Status: Ordered levothyroxine 100 mcg (0.1 mg) oral tablet See Instructions, TAKE ONE TABLET BY MOUTH DAILY, # 90 tabs, 1 Refill(s), Pharmacy: [facility], TAKE ONE TABLET BY MOUTH DAILY Start Date: 04/21/16 Status: Ordered lisinopril 10 mg oral tablet See Instructions, TAKE ONE TABLET BY MOUTH EVERY DAY, # 90 tabs, 1 Refill(s), Pharmacy: [facility], TAKE ONE TABLET BY MOUTH EVERY DAY Start Date: 05/20/16 Status: Ordered PreserVision AREDS 2 caps, Oral, Daily, 0 Refill(s) Start Date: 12/31/15 Status: Ordered PriLOSEC 10 mg oral delayed release capsule 1 caps, Oral, Daily, # 30 caps, 0 Refill(s) Start Date: 01/03/14 Status: Ordered promethazine-codeine 6.25 mg-10 mg/5 mL oral syrup 5 mL, Oral, Bedtime (once a day), as needed for cough, not to exceed 30 mL/24 hours Bobbi Rojas, # 120 mL, 0 Refill(s) Start Date: 1/3/17 Status: Ordered Systane 1 drops, Eye-Both, BID, [...] urinary bladder, SLT laser vaporization of the 23657, 2011 Social History Social History Type Response Smoking Status Former smoker Assessment and Plan Extracted from: Title: Office Visit Note- Continued Author: Lilia Stokes PA-C Date : 06/08/16 cough, COPD Assessment/Plan COPD (chronic obstructive pulmonary disease) Will have her try Duo-Neb tx's instead of just albuterol. I also think she will need to see a [facility]. Pt would like to wait and see if this helps first. Should call or RTC in 2 weeks if not improving. Ordered: ipratropium-albuterol, 3 mL, NEB, QID, # 60 Each, 0 Refill(s), Pharmacy: [facility] #[id number] Office Visit Level 4 Est 49501 Cough I think the cough may be d/t COPD and also somesputumb/c this. I would like her to try an anti-histamine to dry some of this congestion. May try Liv orZyrtec OTC. Push fluids. Daughter wants her to have something to helpwith her cough at night. Has done okay with Prometh/codeine inthe past, although warned about drowsiness. Ordered: promethazine-codeine, 5 mL, Oral, Bedtime (once a day), as needed for cough , not to exceed 30 mL/24 hours NCha Rojas, # 120 mL, 0 Refill(s) Office Visit Level 4 Est 52770
--- OUTSIDE RECORDS SUMMARY | 2016-09-27 11:47 | XMS REPORT | Continuity of Care Document ---
Author Author [facility] Organization [facility] Address Unknown Phone Unavailable Support Name Relationship Address Phone LETITIA MEYER MD Caregiver [facility] [address] [place] [address] DR VIKAS Lindsey [place] [phone] NORMA DOWNING MD Caregiver [address] [place] [address] [place] [phone] [place] Next Of Kin [address] [place] [phone] Insurance Providers Payer Name Policy Number Subscriber Name Relationship Medicare [id number] Lydia Martines 18 Self Other A Insurance [id number] Lydia Martines 18 Self Advance Directives Directive Response Recorded Date/Time Advanced Directives Type None 01/24/14 1:50pm Ordered Resuscitation Status Full Code 01/24/14 2:00pm Problems Medical Problems Problem Onset Date Status Chest heaviness Unknown Active Nausea and vomiting Unknown Active Chest heaviness Unknown Active Medications Medication Dose Route Sig Days/Qty Instructions Order Date Discontinued Date Status Spironolactone 100 Mg PO DAILY 03/13/09 Active Aspirin 1 Tab DAILY 03/13/09 Active [Centrum] DAILY 03/13/09 12/27/11 Discontinued Levothyroxine Sodium DAILY 03/13/09 07/05/12 Discontinued [Mucinex Dm] 03/13/09 06/14/10 Discontinued Lisinopril 10 Mg PO DAILY 02/04/11 Active Levothyroxine Sodium 150 Mcg PO DAILY 07/18/13 Active Vit C/Vit E Acetate/Lutein/Min 1 Cap PO DAILY 07/18/13 Active Sucralfate 1 Gm PO FOUR TIMES DAILY 01/24/14 Active Omeprazole Magnesium 1 Cap PO DAILY 01/24/14 Active Social History Social History Problem Response Recorded Date/Time Smoking Status Former smoker 01/24/2014 1:50pm When did patient STOP smoking? IN E[facility] 20'S 01/24/2014 1:50pm Chewing Tobacco Status No 08/03/2013 8:59am Hx Substance Use No 01/24/2014 1:50pm Hx Alcohol Use No 01/24/2014 1:50pm Has the pt used tobacco in the last 12 months No 01/24/2014 1:50pm Query Response Start Date Stop Date Smoking Status Former smoker Hospital Discharge Instructions No hospital discharge instructions. Plan of Care No plan of care. Functional Status Query Response Date Recorded Physical Hygiene Self December 17, 2013 6:13pm Physical Hygiene Self December 17, 2013 6:13pm Allergies, Adverse Reactions, Alerts Allergen Type Severity Reaction Status Last Updated Quinine Allergy Intermediate SWELLING Active 12/17/13 Levofloxacin Allergy Intermediate Active 12/17/13 Immunizations Name Given Type Hx Influenza Vaccination Y JUL 2012 Historical Hx Pneumococcal Vaccination Y 2010 Historical Hx Tetanus, Diptheria, Pertussis N/A SKIN INTACT Historical Hx Influenza Vaccination Y JUL 2012 Historical Hx Tetanus, Diptheria, Pertussis N/A SKIN INTACT Historical Vital Signs Acute Vital Signs Vital Response Date/Time Temperature (Fahrenheit) 97.8 deg F (96.8 - 99.1) Temperature (Calculated Celsius) 36.39650 degrees C (36.0 - 37.3) Temperature Source Temporal Pulse Rate (adult) 68 bpm (60 - 100) Respiratory Rate 18 breaths/min (10 - 20) O2 Sat by Pulse Oximetry 100 % (90 - 100) Oxygen Delivery Method Room Air Blood Pressure 134/65 mm Hg Blood Pressure Source Automatic Cuff Height 5 ft 7 in Weight 156 lb Body Mass Index 24.0 kg/m^2 Results Test Source Date Result Interp. Ref. Range Comments Activated Partial Thromboplast Time December 17, 2013 5:50pm 28.2 SEC N 24- 36 Alanine Aminotransferase (ALT/SGPT) December 17, 2013 5:50pm 24 U/L N 9-52 Albumin December 17, 2013 5:50pm 4.2 G/DL N 3.5-5.0 Albumin/Globulin Ratio December 17, 2013 5:50pm 1.7 RATIO N 1.1-2.2 Alkaline Phosphatase December 17, 2013 5:50pm 110 U/L N 38-126 Amylase Level December 17, 2013 5:50pm 93 U/L N 30-110 Anion Gap December 17, 2013 5:50pm 13 MEQ/L N 5-15 Aspartate Amino Transf (AST/SGOT) December 17, 2013 5:50pm 19 U/L N 14-36 B-Type Natriuretic Peptide September 13, 2010 8:23pm < 15 PG/ML L 15-100 BUN/Creatinine Ratio December 17, 2013 5:50pm 13 RATIO N 6-26 Band Neutrophils # July 07, 2012 5:25am 0.4 T/MM3 - Band Neutrophils % July 07, 2012 5:25am 2.0 % N 0-6 Basophils # (Auto) December 17, 2013 5:50pm 0.0 T/MM3 N 0-0.2 Basophils # (Manual) March 16, 2009 4:30am 0.0 T/MM3 N 0-0.2 Basophils % (Manual) March 16, 2009 4:30am 0.0 % N 0-2 Basophils (%) (Auto) December 17, 2013 5:50pm 0.2 % N 0-2 Blood Urea Nitrogen December 17, 2013 5:50pm 14.0 MG/DL N 7-17 Calcium Level December 17, 2013 5:50pm 9.4 MG/DL N 8.4-10.2 Calculated Osmolality December 17, 2013 5:50pm 274 MOSM/KG N 261-280 Carbon Dioxide Level December 17, 2013 5:50pm 26 MEQ/L N 22-30 Chloride Level December 17, 2013 5:50pm 103 MEQ/L N 98-107 Cholesterol Level July 23, 2010 1:10pm 217 MG/DL H 132-199 Cholesterol/HDL Ratio July 23, 2010 1:10pm 5.0 RATIO H 0-4.0 Conjugated Bilirubin September 13, 2010 8:23pm 0.00 MG/DL N 0.00-0.30 Creatine Kinase MB July 24, 2010 5:45am 0.0 NG/ML N 0-3.4 Creatinine December 17, 2013 5:50pm 1.1 MG/DL N 0.7-1.2 D-Dimer December 17, 2013 5:50pm 368 NG/ML H 0-230 <224 NG/ML=PRESUMPTIVE NEGATIVE FOR PE OR DVT>224 NG/ML=ADDITIONAL EVALUATION FOR PE OR DVT RECOMMENDED Eosinophils # (Auto) December 17, 2013 5:50pm 0.1 T/MM3 N 0-0.5 Eosinophils # (Manual) March 16, 2009 4:30am 0.0 T/MM3 N 0-0.5 Eosinophils % (Manual) March 16, 2009 4:30am 0.0 % N 0-4 Eosinophils (%) (Auto) December 17, 2013 5:50pm 0.7 % N 0-4 Globulin December 17, 2013 5:50pm 2.5 G/DL N 2.4-3.6 Glucose Level December 17, 2013 5:50pm 95 MG/DL N 65-110 Hematocrit December 17, 2013 5:50pm 38.4 % N 36-46 Hemoglobin December 17, 2013 5:50pm 12.7 GM/DL N 12-16 Influenza Type A Antigen March 13, 2009 11:45am Negative - Influenza Type B Antigen March 13, 2009 11:45am Negative - LDL Cholesterol, Calculated July 23, 2010 1:10pm 150.2 N 66-159 Lipase December 17, 2013 5:50pm 79 U/L N 23-300 Lymphocytes # (Auto) December 17, 2013 5:50pm 5.2 T/MM3 H 1-4.8 Lymphocytes # (Manual) August 03, 2013 9:02am 6.2 T/MM3 H 1-4.8 COMMENT SCU WILL CALL Lymphocytes % (Manual) August 03, 2013 9:02am 63.0 % H 23-45 COMMENT SCU WILL CALL Lymphocytes (%) (Auto) December 17, 2013 5:50pm 51.3 % H 23-45 Magnesium Level July 23, 2010 1:10pm 2.3 MG/DL N 1.6-2.3 Mean Corpuscular Hemoglobin December 17, 2013 5:50pm 27.6 UUG N 26-34 Mean Corpuscular Hemoglobin Concent December 17, 2013 5:50pm 33.1 GM/DL N 31 -37 Mean Corpuscular Volume December 17, 2013 5:50pm 83.5 UM3 N 80-100 Mean Platelet Volume December 17, 2013 5:50pm 9.6 UM3 N 9.4-12.4 Metamyelocytes # March 16, 2009 4:30am 0.2 T/MM3 - Metamyelocytes % March 16, 2009 4:30am 1.0 % H 0-0 Monocytes # (Auto) December 17, 2013 5:50pm 0.6 T/MM3 N 0-0.8 Monocytes # (Manual) August 03, 2013 9:02am 0.2 T/MM3 N 0-0.8 COMMENT SCU WILL CALL Monocytes % (Manual) August 03, 2013 9:02am 2.0 % N 0-9.0 COMMENT SCU WILL CALL Monocytes (%) (Auto) December 17, 2013 5:50pm 5.4 % N 0-9.0 Myelocytes # March 16, 2009 4:30am 0.2 T/MM3 - Myelocytes % March 16, 2009 4:30am 1.0 % H 0-0 Neutrophils # (Auto) December 17, 2013 5:50pm 4.3 T/MM3 N 1.8-7.7 Neutrophils # (Manual) August 03, 2013 9:02am 3.4 T/MM3 N 1.8-7.7 COMMENT SCU WILL CALL Neutrophils % (Manual) August 03, 2013 9:02am 35.0 % N 33-66 COMMENT SCU WILL CALL Neutrophils (%) (Auto) December 17, 2013 5:50pm 42.2 % N 33-66 Platelet Count December 17, 2013 5:50pm 217 T/MM3 N 130-400 Potassium Level December 17, 2013 5:50pm 4.0 MEQ/L N 3.6-5 Prothromb Time International Ratio December 17, 2013 5:50pm 1.10 H 0.81- 1.09 THERAPUTIC RANGE=2.00-3.00 FOR ANTI-THROMBOSIS THERAPUTIC RANGE=2.50- 3.50 FOR IMPLANTED VALVE RDW Standard Deviation December 17, 2013 5:50pm 40.4 FL N 36.9-50.2 Red Blood Count December 17, 2013 5:50pm 4.60 M/MM3 N 4.00-5.20 Smudge Cells August 03, 2013 9:02am 1+ - COMMENT SCU WILL CALL Sodium Level December 17, 2013 5:50pm 142 MEQ/L N 134-144 Thyroid Stimulating Hormone (TSH) September 13, 2010 8:23pm 4.23 MIU/L N 0.47-4.68 Thyroxine (T4) July 23, 2010 1:10pm 12.9 UG/DL H 5.5-11 Total Bilirubin December 17, 2013 5:50pm 0.50 MG/DL N 0.20-1.30 Total Creatine Kinase June 15, 2010 5:40am 23 U/L L 30-135 Total Protein December 17, 2013 5:50pm 6.7 G/DL N 6.3-8.2 Triglycerides Level July 23, 2010 1:10pm 119 MG/DL N 35-135 Troponin I December 17, 2013 5:50pm < 0.012 ng/ml 0-0.12 Unconjugated Bilirubin September 13, 2010 8:23pm 0.35 MG/DL N 0.00-1.10 Urine Bacteria September 13, 2010 9:40pm Trace H - Has specimen been collected/obtained? Y Urine Bilirubin July 05, 2012 5:50pm Negative - Has specimen been collected/obtained? Y Urine Blood July 05, 2012 5:50pm Negative - Has specimen been collected/obtained? Y Urine Collection Type July 05, 2012 5:50pm Voided - Has specimen been collected/obtained? Y Urine Color July 05, 2012 5:50pm Yellow - Has specimen been collected/obtained? Y Urine Culture Indicated September 13, 2010 9:40pm Cult not set up - Has specimen been collected/obtained? Y Urine Glucose (UA) July 05, 2012 5:50pm Negative - Has specimen been collected/obtained? Y Urine Ketones July 05, 2012 5:50pm Negative - Has specimen been collected/obtained? Y Urine Leukocyte Esterase July 05, 2012 5:50pm Negative - Has specimen been collected/obtained? Y Urine Nitrite July 05, 2012 5:50pm Negative - Has specimen been collected/obtained? Y Urine Protein July 05, 2012 5:50pm Negative - Has specimen been collected/obtained? Y Urine RBC September 13, 2010 9:40pm None seen /HPF - Has specimen been collected/obtained? Y Urine Specific [place] July 05, 2012 5:50pm 1.005 L - Has specimen been collected/obtained? Y Urine Squamous Epithelial Cells June 14, 2010 1:30pm Many - Has specimen been collected/obtained? Y Urine Turbidity July 05, 2012 5:50pm Clear - Has specimen been collected/obtained? Y Urine Urobilinogen July 05, 2012 5:50pm Normal EU/DL - Has specimen been collected/obtained? Y Urine WBC September 13, 2010 9:40pm 5-10 /HPF H - Has specimen been collected/obtained? Y Urine pH July 05, 2012 5:50pm 7.0 - Has specimen been collected/ obtained? Y VLDL Cholesterol July 23, 2010 1:10pm 23.8 MG/DL N 0-28 White Blood Count December 17, 2013 5:50pm 10.1 T/MM3 N 4.5-11.0 Chemistry Specimen Hemolysis December 17, 2013 5:50pm < 15 0-25 0-25: No Hemolysis.26-70: Slight [...] can falsely decrease Phenytoin. Recommend specimen recollection. Urinalysis Comment July 05, 2012 5:50pm Microscopic not ind. - Has specimen been collected/obtained? Y EKG September 24, 2007 9:58pm Complete - HDL Cholesterol Direct July 23, 2010 1:10pm 43 MG/DL N 40-60 Turbidity December 17, 2013 5:50pm < 20 0-20 Reactive Lymphocytes % July 05, 2012 4:30pm 10.0 % H 0-0 Glomerular Filtration Rate Calc December 17, 2013 5:50pm 49 - Reactive Lymphocytes # July 05, 2012 4:30pm 1.6 T/MM3 H 0-0 Immature Granulocyte # (Auto) December 17, 2013 5:50pm 0.02 T/MM3 N 0.00- 0.03 Immature Granulocyte % (Auto) December 17, 2013 5:50pm 0.2 % N 0.0-0.5 Icterus Index December 17, 2013 5:50pm < 2 0-7 JT-Lky-I-Type Natriuretic Peptide December 17, 2013 5:50pm 245 PG/ML H 0- 175 Rule in cut points: <50 years old=450; 50-75 years old=900; >75 years old=1800; When utilizing ProBNP rule-in cut points, adjustment for impaired renal function is typically not required. Blood Culture Blood July 05, 2012 4:30pm NO GROWTH AFTER 5 DAYS Gram Stain Sputum-Expectorated Sputum July 05, 2012 7:50pm Urine Culture Urine, Straight Cath June 14, 2010 1:58pm Gram Positive Sam Name: LYDIA MARTINES Unit #: [id number] : 1945 Sex: F Loc / Svc: [facility] DOS: 12/19/13 Signed Report #: [id number] DIAGNOSTIC IMAGING REPORT TYPE OF EXAM: ESOPHOGRAM Dictated By: KOLBY PRITCHETT MD ESOPHAGRAM: Technique: After ingesting air crystals, the patient swallowed thick and thin barium without difficulty. Fluoroscopic imaging was obtained in the upright LPO, supine AP, right lateral, and prone positions. Findings: There is a large sliding esophageal hiatal hernia. There is mucosal irregularity within the distal portion of the esophagus that suggests reflux esophagitis. A large amount of gastroesophageal reflux is visualized. The remainder of the esophagus is negative. Esophageal motility is normal. The cricopharyngeus muscle relaxes completely. There is no Zenker's diverticulum. Impression: 1. Large sliding esophageal hiatal hernia. 2. Reflux esophagitis of the distal esophagus. 3. Large amount of gastroesophageal reflux. Kolby Hinojosa RPA/ performed this under my direct supervision. . Procedures Procedure Status Date Provider(s) THER/PROPH/DIAG INJ IV PUSH completed 12/17/13 TX/PRO/DX INJ NEW DRUG ADDON completed 12/17/13 HYDRATE IV INFUSION ADD-ON completed 12/17/13 Colonoscopy completed 01/25/14 LETITIA MEYER MD Esophagogastroduodenoscopy (EGD) with closed biopsy completed 01/25/14 LETITIA MEYER MD Encounters Encounter Location Date/Time Registered Clinic [facility] 12/19/13 8:47am Departed Emergency Room [facility] 12/17/13 5:28pm
--- OUTSIDE RECORDS SUMMARY | 2016-09-27 11:47 | XMS REPORT | Referral Summary ---
Author Author [facility] Organization [facility] Address Unknown Phone Unavailable Care Team Providers Care Senior Coldfusion Developer Name Role Phone Ailyn Stephenson Primary Care Physician [phone] Encounter Date(s): 07/19/16 - 07/19/16 [facility] [address] [place], [place] [address] Discharge Diagnosis: Chronic coughing Discharge Diagnosis: Diffuse non-Hodgkin's lymphoma Discharge Diagnosis: COPD, mild Discharge Diagnosis: Abnormal chest CT Discharge Diagnosis: Chronic GERD Discharge Disposition: 01-Home or Self Care Attending Physician: Anthony Maher MD Admitting Physician: Anthony Maher MD Referring Physician: Brent Merritt MD Vital Signs Most recent to 1 oldest [Reference Range]: Peripheral Pulse 78 bpm Rate [60-100 bpm] (07/19/16 8:52 AM) Respiratory Rate 20 br/min [14-20 br/min] (07/19/16 8:52 AM) Blood Pressure 132/82 mmHg [90-140/60-90 mmHg] (07/19/16 8:52 AM) SpO2 98 % (07/19/16 8:52 AM) Problem List Condition Effective Dates Status [...] wheezing, # 2 boxes, 2 Refill(s), Pharmacy: [facility] #[id number], 3 mL Inhalation q6hr,PRN:as needed for wheezing Start Date: 02/23/16 Status: Ordered amLODIPine 5 mg oral tablet 5 mg 1 tabs, Oral, Daily, # 7 tabs, 0 Refill(s), Pharmacy: [facility] # [id number], 1 tabs Oral Daily,x7 days Start Date: 07/19/16 Stop Date: 07/26/16 Status: Ordered Aspir 81 81 mg, Oral, Daily, 0 Refill(s) Start Date: 12/17/13 Status: Ordered Colace Oral, Daily, 0 Refill(s) Start Date: 11/15/14 Status: Ordered doxycycline hyclate 100 mg oral capsule 100 mg 1 caps, Oral, BID, # 20 caps, 0 Refill(s), Pharmacy: [facility] # [id number], 1 caps Oral BID Start Date: 07/13/16 Stop Date: 07/23/16 Status: Ordered DuoNeb 0.5 mg-2.5 mg/3 mL inhalation solution 3 mL, NEB, QID, # 60 Each, 2 Refill(s), Pharmacy: [facility] #[id number] Start Date: 07/13/16 Status: Ordered Fish Oil See Instructions, 1 capsule Oral daily., 0 Refill(s) Start Date: 04/11/15 Status: Ordered levothyroxine 100 mcg (0.1 mg) oral tablet See Instructions, TAKE ONE TABLET BY MOUTH DAILY, # 90 tabs, 1 Refill(s), Pharmacy: [facility], TAKE ONE TABLET BY MOUTH DAILY Start Date: 04/21/16 Status: Ordered lisinopril 10 mg oral tablet See Instructions, TAKE ONE TABLET BY MOUTH EVERY DAY, # 90 tabs, 1 Refill(s), Pharmacy: [facility], TAKE ONE TABLET BY MOUTH EVERY DAY [...] qPM, # 30 tabs, 0 Refill(s), Pharmacy: [facility] # [id number] Start Date: 07/19/16 Stop Date: 08/18/16 Status: [...] Craniotomy - Memingioma 2000 Hysterectomy 1998 Cholecystectomy 1992 Thyroid Surgery total 1980 Liver biopsy 1auto-populated from documented surgical case 2auto-populated from documented surgical case 3uretral calibration & dilatation, hydrodistention of the urinary bladder, SLT laser vaporization of the [id number] Social History Social History Type Response Smoking Status Former smoker Assessment and Plan Extracted from: Title: Office Visit Note Author: Anthony Maher MD Date: 07/19/16 Assessment/Plan 1.Chronic coughing Chronic cough. History of smoking. On KAHTLEEN inhibitor Pulmonary function test wasobstruction. CT scan was mild peripheral area of scarring in tree-in-bud Likely it's a combination of possible chronic infection, chronic bronchitis KATHLEEN inhibitor and reflux We will proceed with bronchoscopy next weekto rule out any underlying chronic infection with her immunosuppression Start antihistamine/Xyzaldaily at night I advised patient to hold KATHLEEN inhibitor for7 days. I will substituted to calcium channel suresh just for 7 days toas a trial Advised to take antireflux medication on an empty stomach 2.COPD, mild Mild obstruction. History of smoking Continue updrafts for nowwith albuterol and ipratropium 3.Abnormal chest CT Presence of mild areas of scarring peripherally in tree-in-bud. It could suggestpanic infection with her immunosuppression with rituximab I will proceed with bronchoscopy Ordered: Diffusing [place] [id number] Plethysmography [id number] 4.Chronic GERD Chronic gastroesophageal reflux disease. Advised to take her PPI on an empty stomach 5.Diffuse non-Hodgkin's lymphoma History of non-Hodgkin lymphoma. On rituximab. High risk for infections Bronchoscopy next week. Follow-up in 3 weeks Plan was discussed in detail with her and her daughter Patient concerning bronchoscopies were answered. Risks and benefitswere explained in detail
--- OUTSIDE RECORDS SUMMARY | 2016-09-27 11:47 | XMS REPORT | Referral Summary ---
Author Author [facility] Organization [facility] Address Unknown Phone Unavailable Care Team Providers Care Process Coach Name Role Phone Ailyn Stephenson Primary Care Physician [phone] Encounter Date(s): 07/19/16 - 07/19/16 [facility] [address] [place], [place] [address] Discharge Diagnosis: Abnormal chest CT Discharge Disposition: 01-Home or Self Care Attending Physician: Brent Merritt MD Admitting Physician: Brent Merritt MD Referring Physician: Brent Merritt MD Vital Signs No data available for this section Problem List Condition Effective Dates Status Health [...] wheezing, # 2 boxes, 2 Refill(s), [id number], 3 mL Inhalation q6hr,PRN:as needed for wheezing Start Date: 02/23/16 Status: Ordered amLODIPine 5 mg oral tablet 5 mg 1 tabs, Oral, Daily, # 7 tabs, 0 Refill(s), Pharmacy: [facility] # [id number], 1 tabs Oral Daily,x7 days Start Date: 07/19/16 Stop Date: 07/26/16 Status: Ordered Aspir 81 81 mg, Oral, Daily, 0 Refill(s) Start Date: 12/17/13 Status: Ordered Colace Oral, Daily, 0 Refill(s) Start Date: 11/15/14 Status: Ordered doxycycline hyclate 100 mg oral capsule 100 mg 1 caps, Oral, BID, # 20 caps, 0 Refill(s), Pharmacy: [facility] # [id number], 1 caps Oral BID Start Date: 07/13/16 Stop Date: 07/23/16 Status: Ordered DuoNeb 0.5 mg-2.5 mg/3 mL inhalation solution 3 mL, NEB, QID, # 60 Each, 2 Refill(s), Pharmacy: [facility] #[id number] Start Date: 07/13/16 Status: Ordered Fish Oil See Instructions, 1 capsule Oral daily., 0 Refill(s) Start Date: 04/11/15 Status: Ordered levothyroxine 100 mcg (0.1 mg) oral tablet See Instructions, TAKE ONE TABLET BY MOUTH DAILY, # 90 tabs, 1 Refill(s), Pharmacy: [facility], TAKE ONE TABLET BY MOUTH DAILY Start Date: 04/21/16 Status: Ordered lisinopril 10 mg oral tablet See Instructions, TAKE ONE TABLET BY MOUTH EVERY DAY, # 90 tabs, 1 Refill(s), Pharmacy: [facility], TAKE ONE TABLET [...] qPM, # 30 tabs, 0 Refill(s), Pharmacy: [facility] # [id number] Start Date: 07/19/16 Stop Date: 08/18/16 Status: [...] Hysterectomy 1998 Cholecystectomy 1992 Thyroid Surgery total 1981 Liver biopsy 1auto-populated from documented surgical case 2auto-populated from documented surgical case 3uretral calibration & dilatation, hydrodistention of the urinary bladder, SLT laser vaporization of the [id number] Social History Social History Type Response Smoking Status Former smoker Assessment and Plan No data available for this section
--- OUTSIDE RECORDS SUMMARY | 2016-09-27 11:48 | XMS REPORT | Continuity of Care Document ---
Author Author [facility] Organization [facility] Address Unknown Phone Unavailable Support Name Relationship Address Phone NORMA DOWNING MD Caregiver [address] [place] [phone] JONATAN DORSEY MD Caregiver [address] [place] [phone] CHRISTINA URENA MD Caregiver [address] [place] [address] [place] [address] TIFFANY SANDHU Next Of Kin [address] [place] [address] Insurance Providers Payer Name Policy Number Subscriber Name Relationship Medicare [id number] Lydia Martines 18 Self Other A Insurance [id number] Lydia Martines 18 Self Problems Medical Problems Problem Onset Date Status Chest heaviness Unknown Active Nausea and vomiting Unknown Active Medications Medication Dose Route Sig Days/Qty Instructions Order Date Discontinued Date Status Spironolactone 100 Mg PO DAILY 03/13/09 Active Aspirin DAILY 03/13/09 Active [Centrum] DAILY 03/13/09 12/27/11 Discontinued Levothyroxine Sodium DAILY 03/13/09 07/05/12 Discontinued [Mucinex Dm] 03/13/09 06/14/10 Discontinued Docusate Sodium 100 Mg PO NEEDED 07/23/10 Active Lisinopril 10 Mg PO DAILY 02/04/11 Active Levothyroxine Sodium 150 Mcg PO DAILY 30 Qty 07/18/13 Active Vit C/Vit E Acetate/Lutein/Min 1 Cap PO DAILY 07/18/13 Active Metoclopramide Hcl 10 Mg PO 3-4 TIMES DAILY 20 Qty 12/17/13 Active Social History Social History Problem Response Recorded Date/Time Smoking Status Former smoker 12/17/2013 6:13pm Chewing Tobacco Status No 08/03/2013 8:59am Hx Substance Use No 12/17/2013 6:13pm Hx Alcohol Use No 12/17/2013 6:13pm Has the pt used tobacco in the last 12 months No 08/03/2013 8:59am Query Response Start Date Stop Date Smoking Status Former smoker Hospital Discharge Instructions No hospital discharge instructions. Plan of Care No plan of care. Functional Status Query Response Date Recorded Physical Hygiene Self December 17, 2013 6:13pm Disabilities None December 17, 2013 6:13pm Devices Used None December 17, 2013 6:13pm Dressing Self December 17, 2013 6:13pm Ambulation Self December 17, 2013 6:13pm Diet Self December 17, 2013 6:13pm Mental Status Alert December 17, 2013 8:35pm Disabilities None December 17, 2013 6:13pm Devices Used None December 17, 2013 6:13pm Physical Hygiene Self December 17, 2013 6:13pm Dressing Self December 17, 2013 6:13pm Ambulation Self December 17, 2013 6:13pm Diet Self December 17, 2013 6:13pm Allergies, Adverse Reactions, Alerts Allergen Type Severity Reaction Status Last Updated Quinine Allergy Intermediate SWELLING Active 12/17/13 Levofloxacin Allergy Intermediate Active 12/17/13 Immunizations Name Given Type Hx Influenza Vaccination Y 2- Historical Hx Pneumococcal Vaccination Y 2010 Historical Hx Tetanus, Diptheria, Pertussis N/A SKIN INTACT Historical Hx Influenza Vaccination Y 2-13 Historical Hx Tetanus, Diptheria, Pertussis N/A SKIN INTACT Historical Vital Signs Acute Vital Signs Vital Response Date/Time Pulse Rate (adult) 81 bpm (60 - 100) Respiratory Rate 20 breaths/min (10 - 20) O2 Sat by Pulse Oximetry 97 % (90 - 100) Blood Pressure 129/63 mm Hg Height 5 ft 7 in Weight 159 lb Body Mass Index 24.0 kg/m^2 Results [...] 17, 2013 5:50pm 26 MEQ/L N 22-30 Chemistry Specimen Hemolysis December 17, 2013 5:50pm [...] decrease Phenytoin. Recommend specimen recollection. Chloride Level December 17, 2013 5:50pm 103 [...] NG/ML=ADDITIONAL EVALUATION FOR PE OR DVT RECOMMENDED EKG September [...] 17, 2013 5:50pm 2.5 G/DL N 2.4-3.6 Glomerular Filtration Rate Calc December 17, 2013 5:50pm 49 - Glucose Level December 17, 2013 5:50pm 95 MG/DL N 65-110 HDL Cholesterol Direct July 23, 2010 1:10pm 43 MG/DL N 40-60 Hematocrit December 17, 2013 5:50pm 38.4 % N 36-46 Hemoglobin December 17, 2013 5:50pm 12.7 GM/DL N 12-16 Icterus Index December 17, 2013 5:50pm < 2 0-7 Immature Granulocyte # (Auto) [...] 16, 2009 4:30am 1.0 % H 0-0 PM-Ucj-B-Type Natriuretic Peptide December 17, 2013 5:50pm 245 [...] 17, 2013 5:50pm 40.4 FL N 36.9-50.2 Reactive Lymphocytes # July 05, 2012 4:30pm 1.6 T/MM3 H 0-0 Reactive Lymphocytes % July 05, 2012 4:30pm 10.0 % H 0-0 Red Blood Count December 17, 2013 5:50pm [...] 17, 2013 5:50pm < 0.012 ng/ml 0-0.12 Turbidity December 17, 2013 5:50pm < 20 0-20 Unconjugated Bilirubin September 13, 2010 8:23pm 0.35 MG/DL N 0.00-1.10 Urinalysis Comment July 05, 2012 5:50pm Microscopic [...] Has specimen been collected/obtained? Y Urine Specific [place] July 05, 2012 5:50pm 1.005 L - [...] 17, 2013 5:50pm 10.1 T/MM3 N 4.5-11.0 Blood Culture Blood July 05, 2012 4:30pm NO GROWTH AFTER 5 DAYS Gram Stain Sputum-Expectorated Sputum July 05, 2012 7:50pm Urine Culture Urine, Straight Cath June 14, 2010 1:58pm Gram Positive Sam Procedures No known history of procedures. Encounters Encounter Location Date/Time Registered Emergency Room [facility] 12/17/13 5:28pm Recent Diagnosis
[2016-09-27] MEDS ORDERED: ASPI81TA2 PO (12:21)
[2016-09-27 12:23] LABS: BASOPHILS % (AUTO) 0.2 % (0-2); EOSINOPHILS # (AUTO) 0.2 T/MM3 (0-0.5); EOSINOPHILS % (AUTO) 2.9 % (0-4); HCT - HEMATOCRIT 41.6 % (36-46); HGB - HEMOGLOBIN 13.9 GM/DL (12-16); IMMATURE GRANULOCYTE # (AUTO) 0.01 T/MM3 (0.00-0.03); IMMATURE GRANULOCYTE % (AUTO) 0.2 % (0.0-0.5); LYMPHOCYTES # (AUTO) 0.9 T/MM3 (1-4.8); LYMPHOCYTES % (AUTO) 17.5 % (23-45); MEAN CORPUSCULAR HGB 28.5 UUG (26-34); MEAN CORPUSCULAR HGB CONC(MCHC 33.4 GM/DL (31-37); MEAN CORPUSCULAR VOLUME 85.4 UM3 (80-100); MEAN PLATELET VOLUME 10.6 UM3 (9.4-12.4); MONOCYTES # (AUTO) 0.4 T/MM3 (0-0.8); MONOCYTES % (AUTO) 8.4 % (0-9.0); NEUTROPHILS #(AUTO)-ABSOLUTE 3.7 T/MM3 (1.8-7.7); NEUTROPHILS % (AUTO) 70.8 % (33-66); RED BLOOD COUNT 4.87 M/MM3 (4.00-5.20); WBC - WHITE BLOOD COUNT 5.3 T/MM3 (4.5-11.0)
[2016-09-27 12:35] LABS: ANION GAP 15 MEQ/L (5-15); BUN/CREATININE RATIO 12 RATIO (6-26); CALCIUM 9.5 MG/DL (8.4-10.2); CHLORIDE 105 MEQ/L (98-107); CO2 - CARBON DIOXIDE 27 MEQ/L (22-30); GLOMERULAR FILTRATION RATE 55; GLUCOSE 104 MG/DL (65-110); POTASSIUM 4.1 MEQ/L (3.6-5); SODIUM 147 MEQ/L (134-144)
[2016-09-27] MEDS: LR 1,000 ML IV PRN ×2 (12:37→15:03)
--- NOTE | 2016-09-27 12:49 | ANESPREOP ---
Anesthesia Record Date and Time DATE: 09/27/16 TIME: 12:44 Pre-Op Diagnosis lymphoma Proposed Surgical Procedure INSERTION OF POWER PORT NPO since: mn Allergies: Coded Allergies: quinine (Verified Allergy, Intermediate, SWELLING, 09/27/16) levofloxacin (Verified Allergy, Unknown, 09/27/16) Penicillins (Verified Adverse Reaction, Intermediate, VOMITING, DIARRHEA, 09/27/16) Ht/Wt/BMI Height: 5 ' 7.00 " Weight: 89.200 kg BMI: 30.8 kg/m2 Vital Signs Date Time Temp Pulse Resp B/P Pulse Ox O2 Delivery O2 Flow Rate FiO2 09/27/16 12:04 97.7 79 15 191/102 100 Room Air Medications Inpatient Medications Current Medications Medications (Trade) Dose Ordered Sig/Martha Start Time Stop Time Status Last Admin Dose Admin Lactated Ringer's (Lactated Ringers) 1,000 ml @ 50 mls/hr Q20H PRN 09/27/16 07:00 09/27/16 12:37 50 MLS/HR Amlodipine Besylate (Amlodipine Besylate) 5 Mg Tablet, 5 MG PO DAILY, (Reported) Last Taken: on 09/27/16 0800 Aspirin (Aspirin) 81 Mg Tab.chew, 1 TAB PO DAILY, (Reported) Last Taken: on 09/20/16 Cyanocobalamin (Vitamin B-12) (Vitamin B12) 2,500 Mcg Tablet, 1 TAB PO DAILY, (Reported) Last Taken: on 09/26/16 0800 Docusate Sodium (Colace) 100 Mg Capsule, 1 CAP PO DAILY, (Reported) Last Taken: on 09/26/16 0800 Levothyroxine Sodium (Levothyroxine Sodium) 100 Mcg Tablet, 100 MCG PO DAILY, (Reported) Last Taken: on 09/27/16 0800 Losartan Potassium (Cozaar) 50 Mg Tablet, 50 MG PO DAILY, (Reported) Last Taken: on 09/26/16 0800 Magnesium Oxide (C[place]allero) 500 Mg Tablet, 500 MG PO DAILY, (Reported) Last Taken: on Unknown Date & Time [place]-3 Fatty Acids/Fish Oil (Fish Oil 1 ,000 mg Capsule) 1 Each Capsule, 1,000 MG PO DAILY, (Reported) Last Taken: on 09/20/16 0800 Omeprazole Magnesium (Prilosec) 10 Mg Suspdr.pkt, 1 PACK PO HS, (Reported) Last Taken: on 09/27/16 0800 Vit C/E/Zn/Coppr/Lutein/Zeaxan (Preservision Areds 2 Softgel) 1 Each Capsule, 1 CAP PO BID, (Reported) Last Taken: on 09/26/16 0800 Currently on Beta Arnold: No Medical/Surgical History Anesthesia PMH: Reports: *Dyspnea, *Hypertension, Arthritis (HANDS), Cancer ( Thyroid-1980,[place]MPH[place]), Deep Vein Thrombosis (AFTER THYROID SURGERY IN 1980), Hiatal Hernia (HX OF), Other (passes out but no diagnosis, stress test many years ago ), Pneumonia (HX OF IN 2012), Reflux, Seizures (? seizures but never proven ), Thyroid Disease (HAD THYROIDECTOMY FOR CA), Denies: *Angina, *Diabetes , *[place], Anesthesia Reactions (NO AIRWAY/INTUBATION ISSUES KNOWN), Asthma, Blood Transfusion Reac, CHF, COPD, CVA/Stroke/TIA, Clotting Problems, Glaucoma, Headaches, Hepatitis, Malignant Hyperthermia, Pacemaker, Renal Disease, Rheumatic Fever, Sleep Apnea, Tuberculosis Smoking Status: Former smoker (1972 social ) # of Years: 1972 Substance Use Type: does not use Past Surgical History Orthopedic Surgeries: No Abdominal Surgeries: Yes - CHOLEY Genitourinary Surgeries: Yes - CYSTOCELE AND RECTOCELE Cardiac Surgeries: Yes - LOOPE RECORDER Endocrine Surgeries: Yes - THYROIDECTOMY Reproductive Surgeries: Yes - HYST Neurological Surgeries: Yes - BRAIN TUMOR REMOVED X3 IN PAST Ear Surgeries: No Nose Surgeries: No Throat Surgeries: Yes - EGD Other Surgeries: Yes - BILAT CATARACTECTOMY Anesthesia Adverse Reactions: FOUND nausea and vomiting Family Hx of Anesthesia Advers: none Hx of Motion Sickness: No Pertinent Findings Laboratory Tests 09/27/16 12:18 EKG Rhythm: Sinus Rhythm Physical Exam Respiratory: Bilat breath sounds equal, Lungs clear Cardiovascular: FOUND Regular rate, rhythm, FOUND No murmur Airway Assessment Mallampati Score: I TMD: 3 Fingerbreadths Neck Extension: Good Teeth: Upper Dentures Overall Assessment: No Airway Concerns ASA: 3 Plan Anesthesia Plan: TIVA, LMA Discussion Discussed risks/options/alternatives of anesthesia and questions answered. Patient consents. Nursing pain assessment noted. Attestation Statement Prior to the delivery of any anesthetic medication, I examined the patient, developed the plan, obtained the patient's consent and discussed the risk and benefits of the procedure with the patient/guardian. DAVID LOVE CRNA Sep 27, 2016 12:49
[2016-09-27] MEDS ORDERED: FENTANYL 250mcg/5ml INJECTION ONE (13:32)
[2016-09-27] MEDS ORDERED: PROPOFOL 500mg 50 ML IV ONE (13:32)
[2016-09-27] MEDS ORDERED: LIDOCAINE 2% (20mg/ml) 5ml PF SDV ONE (13:32)
[2016-09-27] MEDS ORDERED: PROPOFOL 200mg 20 ML IV ONE (14:18)
[2016-09-27] MEDS ORDERED: HYDR-4246 PO (14:35)
--- NOTE | 2016-09-27 14:54 | DI ---
Indication: ITS.REASON: POWERPORT PLACEMENT PROCEDURE: PORTACATH W FLUORO W 1V CXR: Encounter: Initial Comparison: 12/18/2014 Findings: There is elevation of left diaphragm is some left basilar atelectasis. There is a right subclavian central port with its tip at about the mid SVC level. No pneumothorax. No pleural effusion. Heart size is normal. No mediastinal or hilar adenopathy. There is mild diffuse interstitial prominence which appears similar to prior study. Impression: Right subclavian central venous port with tip at about the mid SVC level. Left basilar atelectasis with mild diffuse interstitial prominence, similar to prior exam. No pneumothorax post port placement. .
[2016-09-27] MEDS ORDERED: MORPHINE 10mg/ml vl INJECTION IV PRN (15:00)
[2016-09-27] MEDS ORDERED: METOCLOPRAMIDE 10mg/2ml INJECTION IV ONE (15:15)
[2016-09-27] MEDS ORDERED: ONDANSETRON 4mg/2ml INJECTION IV PRN (15:15)
--- NOTE | 2016-09-27 15:30 | ANESPO ---
Post-Op Note Date 09/27/16 Time: 15:29 Status Pt Participated in Evaluation: Pt participated in person Vital Signs Date Time Temp Pulse Resp B/P Pulse Ox O2 Delivery O2 Flow Rate FiO2 09/27/16 15:19 65 16 103/53 99 Room Air 09/27/16 14:34 97.2 4.00 Respiratory Function: Airway patent, Regular respirations Cardiovascular Function: Regular pulse Mental Status: Alert/oriented Pain Level Intensity: 3 Hydration: Taking po fluids, IV infusing Complications during Recovery None apparent Follow-Up Instructions Instructions Per Surgeon ANDRES GOODWIN CRNA Sep 27, 2016 15:29
[2016-09-27] MEDS ORDERED: HYDROCODONE/APAP 5 mg/325 mg TABLET PO PRN (15:45)
--- NOTE | 2016-09-27 22:14 | OPNOTEF ---
DATE OF SERVICE 09/27/2016 SURGEON Derek Reese MD PREOPERATIVE DIAGNOSIS Personal need for long-term central venous access, personal history for lymphoma. POSTOPERATIVE DIAGNOSIS Personal need for long-term central venous access, personal history for lymphoma. PROCEDURE Insertion of PowerPort catheter under sonographic and fluoroscopic guidance. ANESTHESIA TIVA BRIEF HISTORY/INDICATIONS Mrs. Palacios is a 71-year-old female who has had the misfortune of developing lymphoma. She presents today to undergo placement of a PowerPort catheter. For completeness please refer to notes included in the patient's chart. NARRATIVE OF PROCEDURE After informed consent was obtained the patient was brought to the operative suite and placed on the table in supine fashion. The right anterior chest and right lateral neck were then prepped and draped in sterile fashion. Formal time-out was then completed. Ultrasonography was then performed along the right lateral neck. One could see the anatomic location of the internal jugular vein. 0.25% Marcaine with epinephrine was injected overlying the anatomic location of the internal jugular vein. Next, a Cook needle was then introduced through the area of analgesia and directly into the internal jugular vein under sonographic guidance. A venous flush was obtained initially and the guidewire was unfortunately unable to be advanced through the Cook needle. The Cook needle was then repositioned a couple of times and one could aspirate venous blood but unfortunately upon attempting to advance the guidewire through the Cook needle the guidewire was unable to be advanced. The guidewire and Cook needle were then removed. A repeat attempt was made at accessing the internal jugular vein. One could see good indentation of the internal jugular vein as the Cook needle entered into the internal jugular vein under sonographic guidance. Unfortunately, however, a venous flush was unable to be obtained. The Cook needle was removed and utilizing a 22-gauge needle, the needle was advanced directly into the internal jugular vein under sonographic guidance and aspirated without difficulty. The Cook needle was again advanced in a similar fashion. Once again a venous flush was obtained. This time the guidewire was then once again attempted to be advanced through the Cook needle. One could then see the patient was developing a hematoma along the right lateral neck. The Cook needle and guidewire were removed. Pressure was then held for a few minutes. One could see that there was a hematoma now present along the right lateral neck. Under sonography the internal jugular vein had become obliterated within this hematoma. At this point in time I elected to proceed with a subclavian approach. 0.25% Marcaine with epinephrine was injected just beneath the level of the right clavicle. The Cook needle was introduced through the area of analgesia and advanced in an infraclavicular fashion. A venous flush was obtained upon the first pass. The guidewire was advanced through the Cook needle and the Cook needle was removed. Fluoroscopy was then performed that revealed the guidewire to be within the right atrium and right ventricle. Additional 0.25% Marcaine with epinephrine was injected adjacent to the exit site of the guide wire. A 2-3 cm incision was then made overlying the area of analgesia. Dissection was carried down to the deep subcuticular tissues. Next, a subcutaneous pocket was then created in a caudad fashion upon the pectoralis fascia. A Port-A-Cath reservoir was then brought forth to the operative field and fixated to the underlying pectoralis muscle by placing three simple interrupted sutures of 2-0 Prolene in a triangulated fashion. Next, a dilator and tear-away sheath was advanced over the guidewire. The guidewire and dilator were then removed. Catheter was then advanced into the tear-away sheath and the tear-away sheath was removed. Under fluoroscopy the tip of the catheter was then placed near the superior vena cava/right atrial junction. Catheter was then cut to the appropriate length and secured to the Port-A-Cath reservoir. Port-A-Cath reservoir was then aspirated and flushed with heparin. This was performed without incident. Attention was directed towards closure. Skin incisions were closed in a subcuticular fashion with 4-0 Monocryl. Dermabond was placed overlying the incision. The patient is in process of awakening from her anesthetic and will be sent back to the recovery once deemed in stable condition. REUBEN
== END 2016-09-27 16:07 | disposition home or self-care (01) ==
LOC: SCU 11:41
PROVIDERS: ATTEND Surgery
DX: I87.8 Other specified disorders of veins (principal); C85.90 Non-Hodgkin lymphoma, unspecified, unspecified site; I97.418 Intraoperative hemorrhage and hematoma of a circulatory system organ or structure complicating other circulatory system procedure; Z79.899 Other long term (current) drug therapy; E03.9 Hypothyroidism, unspecified; F41.9 Anxiety disorder, unspecified; K59.00 Constipation, unspecified; F32.9 Major depressive disorder, single episode, unspecified; K21.9 Gastro-esophageal reflux disease without esophagitis; E78.5 Hyperlipidemia, unspecified; I10 Essential (primary) hypertension; J44.9 Chronic obstructive pulmonary disease, unspecified; Z79.82 Long term (current) use of aspirin; Z87.891 Personal history of nicotine dependence
CPT/HCPCS: 36415; 36561; 77001; 80048; 82948; 85025; C1788; J2405; J2704; J2765; J3010; J7120